=== PATIENT | female | born 1945 | race Caucasian/White ===

== ENCOUNTER → 2018-02-04 11:24 | Outpatient (CLI) | payer MEDICARE, SELFPAY | PROVIDERS: Family Provider Physician Assistant; PCP Physician Assistant; Visit Provider Physician Assistant | DX: J02.9 Acute pharyngitis, unspecified (principal) | CPT/HCPCS: 87070 ==

== ENCOUNTER → 2018-04-19 11:26 | Outpatient (CLI) | payer MEDICARE, SELFPAY ==
[2018-04-19 11:49] LABS: Bacteria Urine None Seen; RBC Urine None Seen (0-5/HPF); WBC Urine None Seen (0-5/HPF)
[2018-04-19 12:04] LABS: Add Manual Diff / Slide Review NO; Basophils Percent Auto 1.3 % (0-2); Eosinophils Percent Auto 9.6 % (2-4); Hematocrit 36.9 % (36-46); Hemoglobin 12.9 g/dL (12.0-16.0); Lymphocytes Percent Auto 31.2 % (25-40); Mean Corpuscular HGB Conc 34.9 % (30-36); Mean Corpuscular Hemoglobin 30.4 PG (26-34); Mean Corpuscular Volume 87.2 fL (80-100); Monocytes Percent Auto 7.1 % (3-14); Neutrophils Absolute Auto 2200 /uL (3000-5900); Neutrophils Percent Auto 50.8 % (50-75); Platelet Count 183 X10^3/uL (150-400); Red Blood Cell Count 4.24 X10^6/uL (4.0-5.2); Red Cell Distribution Width 12.6 % (11.6-14.8); White Blood Cell Count 4.3 X10^3/uL (4.5-11.0)
[2018-04-19 12:17] LABS: Appearance Urine UA CLEAR; Bilirubin Urine UA NEGATIVE (NEGATIVE); Color Urine UA YELLOW; Glucose Urine UA NEGATIVE (Normal); Ketones Urine UA NEGATIVE (NEGATIVE); Leukocyte Esterase Urine UA TRACE (NEGATIVE); Nitrite Urine UA Negative (Negative); Occult Blood Urine UA NEGATIVE (Negative); Protein Urine UA NEGATIVE (Negative); Specific Gravity Urine UA 1.025 (1.000-1.035); Urobilinogen Urine UA 0.2 E.U./dL (0.2)
[2018-04-19 12:23] LABS: HEMOLYSIS < 15 (0-50); Iron 162 ug/dL (37-170)
[2018-04-19 12:25] LABS: Alanine Aminotransferase 24 IU/L (9-52); Albumin 4.4 g/dL (3.5-5.0); Albumin Globulin Ratio 1.5 (1.0-2.8); Alkaline Phosphatase 44 U/L (38-126); Aspartate Aminotransferase 21 IU/L (14-36); BUN Creatinine Ratio 26.7 (6-22); Bilirubin Total 1.2 mg/dL (0.2-1.3); Blood Urea Nitrogen 16 mg/dL (7-17); Calcium 9.5 mg/dL (8.4-10.2); Carbon Dioxide 29 mmol/L (22-32); Chloride 105 mmol/L (98-107); Cholesterol 215 mg/dL (140-199); Estimated Glomerular Filt Rate > 60.0 mL/min (>60); Globulin 2.9 g/dL (1.7-4.1); Glucose 102 mg/dL (80-110); HDL Cholesterol 78 mg/dL (40-60); HEMOLYSIS < 15 (0-50); LDL Cholesterol Calculated 117 mg/dL (<100); Potassium 4.6 mmol/L (3.4-5.1); Sodium 144 mmol/L (137-145); Total Protein 7.3 g/dL (6.3-8.2); Triglycerides 102 mg/dL (35-150)
[2018-04-19 12:34] LABS: Percent Iron Saturation 52 % (15-50); Total Iron Binding Capacity 314 ug/dL (265-497); Transferrin 263 mg/dL (206-381)
[2018-04-19 12:37] LABS: Culture Indicated Urine Cult Not Indicated; Urine Comments Microscopic Normal
[2018-04-19 12:51] LABS: Thyroid Stimulating Hormone 0.68 uIU/mL (0.47-4.68)
[2018-04-19 12:54] LABS: Ferritin 85.5 ng/mL (11.1-264)
[2018-04-19 13:08] LABS: Vitamin B12 361 pg/mL (239-931)
== END ==
PROVIDERS: PCP Physician Assistant; Visit Provider Physician Assistant
DX: K62.5 Hemorrhage of anus and rectum (principal); R10.9 Unspecified abdominal pain; R53.83 Other fatigue; Z13.220 Encounter for screening for lipoid disorders; Z13.6 Encounter for screening for cardiovascular disorders; R20.0 Anesthesia of skin
CPT/HCPCS: 36415; 80053; 80061; 81001; 82607; 82728; 83540; 83550; 84443; 85025

== ENCOUNTER → 2018-05-31 13:40 | Outpatient (CLI) | payer MEDICARE, SELFPAY ==
--- NOTE | 2018-05-31 13:41 | DI.MG.S_ITS ---
BILATERAL DIGITAL SCREENING MAMMOGRAM 3D/2D WITH CAD: 05/31/2018 CLINICAL: Routine screening. Family history of breast cancer. Comparison is made to exams dated: 02/24/2015 mammogram, 02/24/2015 mammogram, and 09/24/2012 mammogram - [facility]. The tissue of both breasts is heterogeneously dense. This may lower the sensitivity of mammography. Current study was also evaluated with a Computer Aided Detection (CAD) system. No significant masses, calcifications, or other findings are seen in either breast. There has been no significant interval change. IMPRESSION: NEGATIVE There is no mammographic evidence of malignancy. A 1 year screening mammogram is recommended. This exam was interpreted at Station ID: [id number]. NOTE: For mammograms, a report in lay terms will be sent to the patient. Approximately 15% of breast malignancies will not be visualized mammographically. In the management of a palpable breast mass, a negative mammogram must not discourage biopsy of a clinically suspicious lesion. Electronically Signed By: Kaylan evans/vladimir:05/31/2018 17:26:10 letter sent: Normal Exam ACR BI-RADS Category 1: Negative 3341F
== END ==
PROVIDERS: Family Provider Physician Assistant; PCP Physician Assistant; Visit Provider Physician Assistant
DX: Z12.31 Encounter for screening mammogram for malignant neoplasm of breast (principal); Z80.3 Family history of malignant neoplasm of breast
CPT/HCPCS: 77063; 77067

== ENCOUNTER 2018-06-11 09:44 | Day surgery (SDC) | payer MEDICARE, SELFPAY ==
[2018-06-11] VITALS (7 sets, daily range): BP systolic 125–147; BP diastolic 71–90; PULSE 73–113; RESP 10–16; TEMP 36.6–36.8; O2SAT 97–99; BMI 22.4
--- NOTE | 2018-06-11 | PATH_ITS ---
[facility] Accession Number: [id number] . 01 Material submitted: . PART A: GE JUNCTION BIOPSY PART B: RECTAL POLYP . 02 Diagnosis: A. Gastroesophageal Junction, Biopsy: Squamous mucosa with increased intraepithelial eosinophils (up to 45 per 40x high power field), see comment. No columnar mucosa present for evaluation. Negative for dysplasia or malignancy. . B. Rectal Polyp: Tubulovillous adenoma. Negative for high-grade dysplasia or malignancy. BFI06/14/2018 . 02 Comment: A. In the proper clinical setting, the histopathologic appearance in the distal esophagus would support a clinical impression of eosinophilic esophagitis. The differential diagnosis includes drug reaction, gastroesophageal reflux, and food allergies. . . . . 02 Electronically signed: . Raul Pop MD, PhD, Pathologist NPI- [id number] . 01 Gross description: . Part A: GE JUNCTION BIOPSY: Received in formalin are multiple fragment(s) of olson, soft tissue measuring 0.5 x 0.3 x 0.1 cm in aggregate submitted entirely in 1 cassette(s) Part B: RECTAL POLYP: Received in formalin are 2 fragment(s) of olson, soft tissue measuring 1.2 x 0.6 x 1.4 cm to 0.7 x 0.7 x 0.6 cm which are inked, bisected and submitted entirely in 2 cassette(s) /CKI /CKI . 02 Pathologist provided ICD-10: K20.0, D12.8 . 02 CPT . 781563, 317096 Performed at: 01 [facility] [address] [place] [address] [address] [facility], [place], [place] [id number] MD David Luque MD Phone: [phone] Performed at: 02 [facility] [place] [address] [place] [id number] MD Vale Vides MD Phone: [phone]
[2018-06-11] MEDS: SODIUM CHLORIDE 0.9% 1,000 ML 200 ML IV (10:08)
--- NOTE | 2018-06-11 11:45 | P.HP_ITS ---
History of Present Illness Date Patient Seen: 06/11/18 Time Patient Seen: 11:43 Chief complaint: [id number] Narrative: Patient is a woman here for an EGD and a colonoscopy. She has been having rectal bleeding. Not certain if it is black or red the supper lower scopes ordered. She has been having some upper abdominal pain. Patient History Medical History Insomnia (Chronic) Coccidioidomycosis (Resolved ~09/2003) Surgical History H/O arthroscopic knee surgery (Resolved) History of (Resolved) S/P SABRA-BSO (total abdominal hysterectomy and bilateral salpingo-oophorectomy) ( Resolved) Family & Social History Family History: Reviewed 06/11/18 by Mac Meneses MD Social History: household members spouse Tobacco & Substance use: Smoking Status Never smoker alcohol intake current Meds Home Medications Medication Instructions Recorded Confirmed Type cholecalciferol (vitamin D3) 2,000 iu PO Q DAY #0 05/24/11 06/11/18 History [Vitamin D3] multivitamin capsule 1 cap PO DAILY 02/04/18 06/11/18 History Allergies Allergy/AdvReac Type Severity Reaction Status Date / Time benzoyl peroxide Allergy Severe FACIAL Verified 06/10/18 13:38 SWELLING Sulfa (Sulfonamide Allergy Severe SWELLING, Verified 06/10/18 13:38 Antibiotics) HIVES Review of Systems Review of Systems All systems reviewed & are unremarkable except as noted in HPI and below Exam Vital Signs (past 8 hours): - 06/11/18 09:53 Temperature 97.9 F Pulse Rate 113 H Respiratory Rate 16 Blood Pressure 146/90 H Pulse Oximetry 98 Oxygen Delivery Method Room Air Narrative Exam Narrative: Co Operative no apparent distress. Her lungs are clear to auscultation no rales or rhonchi. Heart regular rate and rhythm no murmur gallop abdomen is soft nontender without mass. She is alert and oriented x3. Assessment & Plan Plan: Assessment/Plan Narrative: Will proceed EGD and colonoscopy. I have discussed the procedure and the rationale with the patient including risks of bleeding, perforation which would necessitate a major operation, failure to find remove all lesions and the potential to tattoo. They appeared to understand and wished to proceed.
--- NOTE | 2018-06-11 11:45 | PM.PREOP ---
Pre-operative Note Interval Note Pre-op Check: Yes History & Physical exam performed today by Physician Changes: No ASA Class (for procedural sedation): I
[2018-06-11] MEDS: LIDOCAINE 4% SOLN 50 ML 20 ML TOP (11:49)
[2018-06-11] MEDS: TETRACAINE/BENZOCAINE/BUTAMBEN (CETACAINE) BOTTLE 1 SPRAY TOP (11:54)
[2018-06-11] MEDS: fentaNYL 250 MCG/5 ML INJ IV (12:18)
[2018-06-11] MEDS: MIDAZOLAM 5 MG/5 ML VIAL IV (12:18)
--- NOTE | 2018-06-11 12:39 | P.OP.ENDO_ITS ---
Operative Date/Time/Diagnoses Date of procedure: 06/11/18 Time of procedure: 12:30 Pre-op diagnosis: Rectal bleeding Post-op diagnosis: same (Possible Ley's esophagus. Large rectal polyp. Sigmoid diverticulosis.) Procedure & Clinicians Study performed: EGD with cold biopsy colonoscopy with snare polypectomy Same procedure as scheduled: Yes Indications: Determine cause of bleeding Surgeon: Mac Meneses Procedure Notes SCOAP/Timeout: Performed Procedure in detail: The patient had topical anesthetic applied to oropharynx. She was placed in left lateral decubitus position and underwent IV sedation directed by the surgeon consisting of fentanyl and Versed. A bite block was inserted and the scope was advanced through it into the esophagus. The esophagus was unremarkable. GE junction was noted at 40 cm. There some mild inflammation suggesting possible Ley's esophagus.. The stomach insufflated well. There were no lesions seen in the body, antrum or at the incisura. The pyloric channel was narrowed but patent. The duodenum was unremarkable to the 3rd part. The scope was brought back into the stomach and retroflexed. The proximal stomach was normal in appearance. There was no evidence of a hiatal hernia from above or below.. The scope was straightened and brought out through the esophagus again. Biopsies were taken randomly at the GE junction. No other lesions were seen. The scope was removed and the patient tolerated the procedure well. The patient was repositioned and colonoscopy performed. The patient was left in the left lateral decubitus position and underwent additional IV sedation directed by the surgeon consisting of fentanyl and Versed. Digital exam was unremarkable except for external hemorrhoids. The scope was inserted and advanced through the rectum into the sigmoid, descending, transverse, and ascending colon. The patient was noted to have sigmoid diverticulosis. There was no evidence of stricture however. A stiffener was applied along with the per pressure to the abdomen and we were able to reach the cecum. The cecum was reached identified by the ileocecal valve and the appendiceal opening. The ileocecal valve was briefly cannulated. The terminal ileum was normal in appearance. The scope was gradually brought out. No Polyps were found until I reached the rectum. There was a large polyp just inside the anal verge. I retroflexed the scope 1st and the anal verge was normal in appearance. The polyp was then snared in 2 pieces and removed. It appeared to be completely removed. The edges of the polypectomy site were cauterized to make sure. The scope was removed and the patient tolerated the procedure well Scope withdrawal time: 7-1/2 minutes Sedation minutes: 40 Findings: Ley's esophagus (Possible. Biopsies taken.), diverticulosis ( Sigmoid) and polyp (Large rectal polyp just inside anal verge) Specimen(s): other (Polyp/GE junction biopsies) Complications: none Recommendations: Other recommendation (Flex sig in 6 months to confirm no regrowth of the rectal polyp) Follow up: as needed Disposition: PACU
--- NOTE | 2018-06-11 12:57 | SUR.PHASEI ---
stable pacu, to ops.
== END 2018-06-11 13:40 | disposition home or self-care (01) ==
PROVIDERS: PCP Physician Assistant; Visit Provider Specialist
PROC: 0DJ08ZZ Inspection of Upper Intestinal Tract, Via Natural or Artificial Opening Endoscopic (ICD-10-PCS; CPT 43235; principal; 2018-06-11 10:45)
PROC: 0DJD8ZZ Inspection of Lower Intestinal Tract, Via Natural or Artificial Opening Endoscopic (ICD-10-PCS; CPT 45378; 2018-06-11 10:45)
DX: K62.5 Hemorrhage of anus and rectum (principal); K57.30 Diverticulosis of large intestine without perforation or abscess without bleeding; K22.70 Barrett's esophagus without dysplasia; K20.0 Eosinophilic esophagitis; D12.8 Benign neoplasm of rectum
CPT/HCPCS: 45385; 43239; 88305; 99152; 99153; J2250; J3010

== ENCOUNTER 2018-12-03 08:21 | Day surgery (SDC) | payer MEDICARE, SELFPAY ==
[2018-12-03 08:44] VITALS: BP 160/83; PULSE 79; RESP 16; TEMP 36.7; O2SAT 98; BMI 24.0
[2018-12-03] MEDS: SODIUM CHLORIDE 0.9% 1,000 ML 150 ML IV (08:53)
--- NOTE | 2018-12-03 08:58 | SUR.OPER ---
Supine on padded OR bed, head on pillow, safety belt at thigh, left arm padded and tucked at side. Right arm secured on padded arm oard <90 degrees abduction. Legs uncrossed. Padded footboard in place. Tape over blanket to secure lower legs.
--- NOTE | 2018-12-03 09:21 | PM.HP.1 ---
History of Present Illness Date Patient Seen: 12/03/18 Time Patient Seen: 09:11 Chief complaint: [id number] Narrative: The patient is wound a large polyp removed from her rectum 6 months ago. She is here to ensure that nothing has grown back and it was completely removed. the polyp was benign. Patient History Medical History (Updated 12/03/18 @ 09:22 by Mac Meneses MD) Benign colonic polyp (Resolved) Insomnia (Chronic) Coccidioidomycosis (Resolved ~09/2003) Surgical History H/O arthroscopic knee surgery (Resolved) History of (Resolved) S/P SABRA-BSO (total abdominal hysterectomy and bilateral salpingo-oophorectomy) (Resolved) Family History Mother Hypertension Gallstones Father Hypertension Heart disease Grandmother Diabetes mellitus Grandmother Stroke Social History household members: spouse Smoking Status: Never smoker second hand exposure: No alcohol intake: current (a couple of glasses of wine occasionally) substance use type: does not use Family & Social History Family History Mother Hypertension Gallstones Father Hypertension Heart disease Grandmother Diabetes mellitus Grandmother Stroke Social History: household members spouse Tobacco & Substance use: Smoking Status Never smoker alcohol intake current Meds Home Medications Medication Instructions Recorded Confirmed Type cholecalciferol (vitamin D3) 2,000 iu PO Q DAY #0 05/24/11 06/11/18 History [Vitamin D3] multivitamin capsule 1 cap PO DAILY 02/04/18 06/11/18 History Allergies Allergy/AdvReac Type Severity Reaction Status Date / Time benzoyl peroxide Allergy Severe FACIAL Verified 12/03/18 08:37 SWELLING Sulfa (Sulfonamide Allergy Severe SWELLING, Verified 12/03/18 08:37 Antibiotics) HIVES Review of Systems Review of Systems No cardiopulmonary GI or symptoms Exam Vital Signs (past 8 hours): - 12/03/18 08:44 Temperature 98.1 F Pulse Rate 79 Respiratory Rate 16 Blood Pressure 160/83 H Pulse Oximetry 98 Oxygen Delivery Method Room Air Narrative Exam Narrative: Lungs are clear. Heart regular rate and rhythm without murmur gallop. Abdomen is soft nontender without mass. Patient is alert. Assessment & Plan Assessment & Plan narrative: The patient for a sigmoidoscopy. I have discussed the procedure with her. Risks of bleeding, perforation which would necessitate major operation, . All questions were answered. She wished to proceed.
--- NOTE | 2018-12-03 09:25 | PM.PREOP ---
Pre-operative Note Interval Note History & Physical reviewed/Exam performed by Physician: Yes Changes to H&P: No ASA Class (for procedural sedation): I
--- NOTE | 2018-12-03 09:29 | PM.PREOP ---
Pre-operative Note Interval Note History & Physical reviewed/Exam performed by Physician: Yes Changes to H&P: No ASA Class (for procedural sedation): I
--- NOTE | 2018-12-03 09:30 | PM.OP.ENDO ---
Operative Date/Time/Diagnoses Date of procedure: 12/03/18 Time of procedure: 09:30 Pre-op diagnosis: History of rectal polyp near anal verge Post-op diagnosis: same (No residual seen) Procedure & Clinicians Study performed: Flexible sigmoidoscopy to 20 cm Same procedure as scheduled: Yes Indications: Confirm complete removal and no regrowth Surgeon: Mac Meneses Procedure Notes SCOAP/Timeout: Performed Procedure in detail: Patient was placed in left lateral decubitus position. Digital exam was unremarkable. Scope was inserted and the anus and rectum carefully examined to 20 cm. The scope was slowly brought back. It was retroflexed in the rectum. There was no evidence of any residual or regrowth of polyp. Scope was removed and the patient tolerated the procedure well Scope withdrawal time: Not applicable Sedation minutes: 0 Findings: other findings (No regrowth of the polyp) Specimen(s): none sent Complications: none Recommendations: Other recommendation (Colonoscopy in 4.5 years due to the history of polyps) Follow up: as needed Disposition: same day surgery
[2018-12-03 09:37] VITALS: BP 147/78; PULSE 76; RESP 15; TEMP 36.6; O2SAT 98
== END 2018-12-03 09:46 | disposition home or self-care (01) ==
PROVIDERS: PCP Physician Assistant; Visit Provider Specialist
PROC: 0DJD8ZZ Inspection of Lower Intestinal Tract, Via Natural or Artificial Opening Endoscopic (ICD-10-PCS; CPT 45378; principal; 2018-12-03 09:45)
DX: Z86.010 Personal history of colon polyps (principal)
CPT/HCPCS: G0104

== ENCOUNTER → 2018-12-14 16:00 | Outpatient (CLI) | payer MEDICARE, SELFPAY | PROVIDERS: PCP Physician Assistant; Visit Provider Physician Assistant | DX: N30.01 Acute cystitis with hematuria (principal) | CPT/HCPCS: 87086 ==

== ENCOUNTER → 2021-03-23 16:16 | Outpatient (CLI) | payer MEDICARE, SELFPAY ==
--- NOTE | 2021-03-23 16:19 | DI.MG.S_ITS ---
BILATERAL DIGITAL SCREENING MAMMOGRAM 3D/2D WITH CAD: 03/23/2021 CLINICAL: Routine screening. Family history of breast cancer. Comparison is made to exams dated: 05/31/2018 mammogram, 02/24/2015 mammogram, and 02/24/2015 mammogram - [facility]. The tissue of both breasts is heterogeneously dense. This may lower the sensitivity of mammography. Current study was also evaluated with a Computer Aided Detection (CAD) system. There are benign calcifications in the left breast. No significant masses, calcifications, or other findings are seen in either breast. There has been no significant interval change. IMPRESSION: BENIGN There is no mammographic evidence of malignancy. A 1 year screening mammogram is recommended. This exam was interpreted at Station ID: [id number]. NOTE: For mammograms, a report in lay terms will be sent to the patient. Approximately 15% of breast malignancies will not be visualized mammographically. In the management of a palpable breast mass, a negative mammogram must not discourage biopsy of a clinically suspicious lesion. Electronically Signed By: Megan patel/vladimir:03/23/2021 17:57:27 letter sent: Normal Exam ACR BI-RADS Category 2: Benign Finding(s) 3342F
== END ==
PROVIDERS: PCP Student in an Organized Health Care Education/Training Program; Referring Provider Student in an Organized Health Care Education/Training Program; Visit Provider Obstetrics & Gynecology
DX: Z12.31 Encounter for screening mammogram for malignant neoplasm of breast (principal); Z80.3 Family history of malignant neoplasm of breast
CPT/HCPCS: 77063; 77067

== ENCOUNTER → 2021-12-21 11:20 | Outpatient (CLI) | payer MEDICARE, SELFPAY ==
[2021-12-21 11:54] LABS: COVID19 -Nasal RAPID Negative (Negative)
== END ==
PROVIDERS: PCP Student in an Organized Health Care Education/Training Program; Visit Provider Obstetrics & Gynecology
DX: Z20.822 Contact with and (suspected) exposure to COVID-19 (principal)
CPT/HCPCS: 87635

== ENCOUNTER 2021-12-22 08:10 | Day surgery (SDC) | payer MEDICARE, SELFPAY ==
[2021-12-15 07:47] VITALS: BMI 24.3
[2021-12-22] VITALS (12 sets, daily range): BP systolic 111–149; BP diastolic 49–83; PULSE 77–97; RESP 10–18; TEMP 36–37.3; O2SAT 95–98; BMI 24.3
--- NOTE | 2021-12-22 09:26 | PM.PREOP ---
Pre-operative Note COVID-19 COVID-19 status: Negative Result date/Date tested (Pos, Neg/Pending): 12/21/21 Criteria for continued procedure: Non-surgical alternatives not available or appropriate per current SOC Interval Note History & Physical reviewed/Exam performed by Physician: Yes Changes to H&P: No H&P completed within 30 days and has changed as indicated here:: 12/15/21
[2021-12-22] MEDS: CEFAZOLIN 2 GM/20 ML SYRINGE IV (10:30)
[2021-12-22] MEDS: BUPIVACAINE 0.25% (PF) 30 ML, EPINEPHrine 0.15 MG INJ (10:45)
[2021-12-22] MEDS: ACETAMINOPHEN IV 1,000 MG/100 ML VIAL 400 MG IV (11:07)
--- NOTE | 2021-12-22 11:11 | SUR.OPER ---
Lithotomy on padded OR bed, head on pillow, arms secured on padded arm boards at <90 degrees abduction. Legs secured in padded yellow fins stirrups.
[2021-12-22] MEDS: LACTATED RINGERS 1,000 ML 100 ML IV ×3 (11:25→21:17)
--- NOTE | 2021-12-22 11:49 | P.OP_ITS ---
Operative Date/Time/Diagnoses Date of procedure: 12/22/21 Time of procedure: 11:49 Pre-op diagnosis: Third-degree rectocele Vaginal vault prolapse Post-op diagnosis: same Procedure & Clinicians Procedure: Procedures Operation Date: 12/22/21 09:45 Actual Procedure Side Surgeon p Posterior Repair, sacrospinous ligament fixation Teodora Mcintyre MD Indications: Third-degree rectocele that is symptomatic Vaginal vault prolapse Surgeon: Teodora Mcintyre Social Services Director: Tami Hough Anesthesia Type: General and Local Operative Notes Findings: Third-degree rectocele Vaginal vault prolapse Closure Type: primary Specimen(s): none Applied: catheter (Oneal to continuous drainage) and other (Vaginal packing in place) Estimated blood loss (mL): 10 Blood products transfused: none Procedure in detail: The patient was taken to the operating room where she was placed in the dorsal supine position. After adequate general endotracheal anesthesia was achieved, she was placed in the dorsal lithotomy position, and prepped and draped in the usual sterile fashion. A time-out was performed. Allis clamps were placed at the mucocutaneous junction at the introitus. 6 mL of quarter percent Marcaine with epinephrine were injected. An incision was made with a #10 blade between the 2 Allis clamps, and a triangular piece of skin and underlying subcutaneous tissue was removed. Allis clamps were placed in the midline of the rectocele. 10 mL of quarter percent Marcaine with epinephrine were injected submucosally. The mucosa was undermined using the Metzenbaum scissors and the mucosa incised in the midline, moving the wide Allis clamps to the mucosal edges. The underlying fascia was dissected off of the mucosa using an open moistened Ray-Nan and a #10 blade. The space around the right sacral spinous ligament was bluntly dissected to clear tissue vessels. The ligament was identified. Using the Capio needle with 2 0 PDS, a stitch was placed into the sacral spinous ligament 2 cm from the ischial spine. This was then brought through the apex of the vagina with care not to go all the way through the mucosa. This was tagged with a hemostat. The fascia was reapproximated using 0 Vicryl with a series of horizontal mattress sutures. The excess vaginal mucosa was excised. The mucosa was closed using a series of simple interrupted sutures with 2-0 Vicryl including the underlying fascia to close the space. The first 3 stitches were placed and then the sacral spinous ligament stitch was tied down. The remainder of the mucosa was closed with simple interrupted sutures including the underlying fascia. 0 Vicryl was used to reapproximate the levator muscle. The subcutaneous layer was closed with 2-0 Vicryl. The skin was closed with 3-0 chromic in a subcuticular fashion. Hemostasis was achieved. A Betadine moistened vaginal pack was placed into the vagina. A rectal exam was done and there were no sutures palpable in the rectum. The urine was clear. Sponge, lap, and instrument counts were correct x-2. The patient tolerated the procedure well, was taken to PACU in stable condition.m Complications: none Post-operative Condition: stable Disposition: PACU Plan for aftercare: To Acute Care after recovery
[2021-12-22] MEDS: DOCUSATE 100 MG CAPSULE 200 MG PO (20:41)
[2021-12-22] MEDS: ACETAMINOPHEN 325 MG TABLET 650 MG PO (20:41)
[2021-12-23] MEDS: OXYCODONE IR 5 MG TABLET PO ×2 (02:54→10:18)
--- NOTE | 2021-12-23 05:24 | PC.NURSE ---
Oneal catheter and vaginal packing removed without trauma or discomfort. vag packin g with moderate staining but not shayan red blood noted. Zak-care performed and new zak-pad placed. Pt placed in position of comfort. Total of 1350 clear pale yellow urine emptied from catheter drainage bag.
--- NOTE | 2021-12-23 05:25 | PC.NURSE ---
Oneal and vaginal packing removed. 1350mL out from catheter, scant drainage on vaginal pad. Patient tolerated well.
[2021-12-23 05:45] VITALS: BP 130/72; PULSE 74; RESP 18; TEMP 36.9; O2SAT 95
[2021-12-23] MEDS: ACETAMINOPHEN 325 MG TABLET 650 MG PO (06:06)
[2021-12-23] MEDS: DOCUSATE 100 MG CAPSULE 200 MG PO (08:21)
[2021-12-23 09:00] VITALS: BP 126/77; PULSE 70; RESP 16; TEMP 36.9; O2SAT 97
--- NOTE | 2021-12-23 09:16 | CM.DANOTE ---
DCP: PCP: Chery Horton MD Payor: Medicare Patient is a 76 y/o F admitted for Posterior repair/SSLP on 12/22/21. DCP met with pt at bedside. Pt sitting up in chair watching TV. Spouse also present. DCP introduced herself and explained role. Pt states she is in more sore today than yesterday. Pt states MD has not yet come by but hoping for discharge today, as she is ready to go home. Pt lives in [place] with her spouse. Pt is independent at baseline still drives POV. Pt denies any need for HH and states she has a good spouse who will take care of her when they get home. DCP updated whiteboard with contact info and instructed to call with any other concerns should they arise. P: Pt d/c home when deemed medically stable by MD. Pt to leave hospital in spouse POV. Allyson Sanches RN/GEE Discharge Planning/Care Management CM Discharge Assessment Start: 12/23/21 09:15 Freq: Status: Active Protocol: Document 12/23/21 09:15 HEATHER (Rec: 12/23/21 09:16 AJ [id number]) Discharge Planning Assessment Assigned Lead Pressman [employer] Allyson Sanches RN/GEE Advance Directives? No History Provided By Patient,Medical Record Prior Living Arrangements House Household Members spouse Type of transporation used prior to Drives own vehicle admit Independent with ADL's Yes Is patient alert and oriented? Yes Caregiver for Another No Discharge Plan Home Transportation Arrangement Spouse POV Referrals Initiated None needed Whiteboard Updated in Patient Room with Yes name and ext. # of Lead Pressman [employer] Comment Instructed to call with any questions Review Status In Process Please Provide Date Initial DC 12/23/21 Assessment Was Performed Next Review Type Continued Stay Review Pre-Anesthesia Assessment Start: 12/15/21 07:47 Freq: Status: Complete Protocol: Document 12/15/21 07:47 CAB (Rec: 12/15/21 07:55 CAB [id number]) Pre-Anesthesia Assessment Patient Information Reviewed Via Chart Review Comment Covid screen @ 12/21/21 Primary Care Provider Felicitas Aguirre Seen Specialist in Last 12 Months Yes Specialist Seen Grommet Man Primary Language Kazakh Salesperson Parts Required No Height 167.64 cm Weight 68.492 kg Body Mass Index (BMI) 24.3 Hx Anesthesia Reactions No Hx Family Anesthesia Reaction No Hx Malignant Hyperthermia No Hx Blood Transfusion Reaction No Anesthesia Review Requested No Garden Consultant No alcohol intake current Alcohol Intake Frequency Other: Ocassional Smoking Status Never smoker Patient is completely paralyzed or No completely immobile Mental Status Oriented to own ability Hx Sleep Apnea No CPAP/BIPAP use not prescribed Currently Taking a Beta Orlin No Anti-Coagulant Therapy No Cardiac Testing No Hx Pacemaker/ICD No Pacemaker Rep Required? No Urinary Catheter Present No Hx Urinary Self Catheterization No Diabetes No Patient No Lactating No Hx Drug Resistant Organism No Presence of External or Internal Medical No Devices Marital Status Lives With spouse Patient Discharge Plan Description Return Home Advance Directives? No Power of Bread Wrapping Machine Feeder No
[2021-12-23] MEDS: IBUPROFEN 600 MG TABLET PO (10:18)
--- NOTE | 2021-12-23 15:15 | PM.DS.1 ---
History of Present Illness History of Present Illness Date Patient Seen: 12/23/21 Time Patient Seen: 12:05 Chief complaint: Posterior Repair/SSLP *OPB* Narrative: Patient is a 76-year-old postop day # 1 status post a posterior repair and a sacral spinous ligament fixation. Her catheter was removed and vaginal packing removed at 6:00 a.m. this morning. She was able to void without difficulty. She is having minimal vaginal bleeding. She has no nausea or vomiting. She is tolerating a diet. Pain is well controlled. Discharge Providers Provider Date of admission: 12/22/21 Discharge Date: 12/23/21 Primary care physician: Chery Horton MD Discharge provider: Teodora Mcintyre MD Summary Hospital Course Discharge Diagnosis: Third-degree rectocele Vaginal vault prolapse Hospital Course: Patient is a 76-year-old who presented on December 22, 2021 for a scheduled posterior repair and sacral spinous ligament fixation. She underwent these procedures without complication. Her postoperative course unremarkable. She was able to void without the catheter on postop day # 1. She is having minimal vaginal bleeding. No nausea or vomiting. Pain well controlled. She is ambulating without assistance. She is tolerating a diet. She had some tenderness of her tonsils. Anesthesia evaluated her and prescribed some topical lidocaine. She is discharged home on postop day # 1 to follow-up in 2 weeks. Status at Discharge Cognitive/behavioral status at discharge: oriented Functional status at discharge: independent ambulation Overall status at discharge: patient is progressing back to baseline Time Spent with Patient Time spent: Less than 30 minutes Exam Vital Signs (past 8 hours): - 12/23/21 09:00 Temperature 98.5 F Pulse Rate 70 Respiratory Rate 16 Blood Pressure 126/77 Pulse Oximetry 97 Oxygen Delivery Method Room Air Oxygen Flow Rate 0 Narrative Exam Narrative: Generally: Patient walking in room, no acute distress Lungs: Clear to auscultation bilaterally Cardiovascular: Regular rate and rhythm Abdomen: Soft and flat Perineum: Dry Extremities: No edema, negative [facility] Medical History Benign colonic polyp Coccidioidomycosis (~09/2003) Hx of flexible sigmoidoscopy (12/03/18) Insomnia Osteoarthritis Surgical History H/O arthroscopic knee surgery History of S/P SABRA-BSO (total abdominal hysterectomy and bilateral salpingo-oophorectomy) Family History Mother Hypertension Gallstones Father Hypertension Heart disease Grandmother Diabetes mellitus Grandmother Stroke Social History household members: spouse Smoking Status: Never smoker second hand exposure: No alcohol intake: former substance use type: does not use Discharge Assessment & Plan Assessment and Plan Assessment: Postop day # 1 status post posterior repair and sacral spinous ligament fixation, doing very well Tonsils/uvula discomfort Plan of Treatment: Discharge to home Follow-up in 2 weeks Viscous lidocaine Discharge Plan Discharge Plan Patient Disposition: Home Provider Discharge Comment: Call with fever, chills, or bleeding vaginally more than spotting to light Ibuprofen 600 mg every 6 hours as needed. Please take with food or milk. Tylenol 650 mg every 6 hours as needed Stool softeners for the first 6 week Discharge orders & Medications Discharge Orders: Discharge (Order); Ordered 12/23/21 Ordered By: Teodora Mcintyre Prescriptions: New oxycodone 5 mg tablet 5 mg PO Q4H PRN (Reason: pain) Qty: 20 0RF Continued multivitamin capsule 1 cap PO DAILY 0RF cholecalciferol (vitamin D3) [Vitamin D3] 2,000 UNIT capsule 2,000 iu PO Q DAY Qty: 0 0RF Discontinued CMP Estradiol Vaginal Pearls 10mcg See Rx Instructions .ROUTE .COMPLEX Qty: 8 6RF Rx Instructions: insert one tacos vaginally at bedtime 2x weekly. Makers Follow up/Referrals: Teodora Mcintyre MD [Physician] - 2 Weeks Diet/Activity/Treatments Diet: Regular Activity: No heavy lifting. Nothing more than a gal of milk for 6 weeks Nothing in the vagina for 6 weeks, including estradiol Skin/Wound/Dressing Care Report to your healthcare provider any signs of infection, such as:: chills, fever, increased pain and unusual drainage Visit Report/Discharge Packet Instructions: DI for Cystocele and Rectocele Repair, DI for Prescription Opioid Use Stand Alone Forms: Surgery Discharge Discharge Data Primary Care Provider: Chery Horton Attending Provider: Teodora Mcintyre Quality VTE Deep Vein Thrombosis/Pulmonary Embolism Present on Admission: No
--- NOTE | 2021-12-30 20:11 | PM.PN.1 ---
Subjective Subjective Date Patient Seen: 12/23/21 Interval history: I was asked by Dr Mcintyre to see Mrs Tolentino prior to her discharge for her complaint of sore throat after her surgery on December 22. I did so. Dee was worried about her tonsils, but upon examination it was really her uvula which was swollen and reddened at the distal third. The rest of her oropharynx looked normal. I suspect the swollen uvula was a consequence of malplacement of the laryngeal mask airway used during her surgery. This is a rare but well known complication of airway instrumentation which usually resolves without sequelae. I reassured Dee and gave her some viscous lidocaine mouthwashes to take home with her to help relieve her symptoms. I called Mrs Tolentino at home on December 30. Her sore throat has completely resolved, and did so a few days after discharge, as anticipated. She has no post-op pain. She has resumed all normal activities except for driving and other load bearing instructions as per Dr Mcintyre. She is very happy with her procedure and expresses satisfaction with her care. Exam Vital Signs (past 8 hours): Oxygen Delivery Method Room Air Oxygen Flow Rate 0 PFSH Medical History Benign colonic polyp Coccidioidomycosis (~09/2003) Hx of flexible sigmoidoscopy (12/03/18) Insomnia Osteoarthritis Surgical History H/O arthroscopic knee surgery History of S/P SABRA-BSO (total abdominal hysterectomy and bilateral salpingo-oophorectomy) Family History Mother Hypertension Gallstones Father Hypertension Heart disease Grandmother Diabetes mellitus Grandmother Stroke Social History household members: spouse Smoking Status: Never smoker second hand exposure: No alcohol intake: former substance use type: does not use Assessment & Plan Time Spent With Patient Critical Care time: I spent a total of [] minutes of critical care time on this patient's care today; this time is exclusive of procedural time. Quality VTE Deep Vein Thrombosis/Pulmonary Embolism Present on Admission: No
== END 2021-12-23 13:22 | disposition home or self-care (01) ==
LOC: OR 08:12 → AC 08:12
PROVIDERS: PCP Family Medicine; Referring Provider Obstetrics & Gynecology; Visit Provider Obstetrics & Gynecology
PROC: (CPT 57282; principal; 2021-12-22 09:45)
DX: N81.6 Rectocele (principal)
CPT/HCPCS: 57282; 57250; J0131; J0171; J0690; J3010

== ENCOUNTER → 2022-03-14 11:07 | Outpatient (CLI) | payer MEDICARE, SELFPAY ==
[2022-01-05 15:32] VITALS: BMI 24.3
--- NOTE | 2022-03-14 | DI.RAD.S_ITS ---
PROCEDURE: XR DEXA AXIAL SKELETON INDICATIONS: Asymptomatic menopausal state COMPARISON: [facility], CR, DEXA AXIAL SKELETON, 09/24/2012, 12:39. FINDINGS: This blank DEXA report has been sent in error by the PACS system. The correct and complete report will be forthcoming in 1-2 days. Thank you for your patience and understanding. Dictated by: Kaylan Smith M.D. on 03/16/2022 at 8:14 Approved by: Kaylan Smith M.D. on 04/21/2022 at 16:06
== END ==
PROVIDERS: PCP Family Medicine; Referring Provider Student in an Organized Health Care Education/Training Program; Visit Provider Student in an Organized Health Care Education/Training Program
DX: Z78.0 Asymptomatic menopausal state (principal); Z13.820 Encounter for screening for osteoporosis; M85.89 Other specified disorders of bone density and structure, multiple sites
CPT/HCPCS: 77080

== ENCOUNTER → 2022-06-13 11:35 | Outpatient (CLI) | payer MEDICARE, SELFPAY ==
[2022-01-05 15:32] VITALS: BMI 24.3
--- NOTE | 2022-06-13 | DI.MG.S_ITS ---
BILATERAL DIGITAL SCREENING MAMMOGRAM 3D/2D WITH CAD: 06/13/2022 CLINICAL: Routine screening. Family history of breast cancer. Comparison is made to exams dated: 03/23/2021 mammogram, 05/31/2018 mammogram, and 02/24/2015 mammogram - [facility]. Both breasts are heterogeneously dense, which may obscure small masses (category c / 51-75% glandular tissue). Current study was also evaluated with a Computer Aided Detection (CAD) system. There are benign calcifications in the left breast. No significant masses, calcifications, or other findings are seen in either breast. There has been no significant interval change. IMPRESSION: BENIGN There is no mammographic evidence of malignancy. A 1 year screening mammogram is recommended. Based on the Tyrer Cuzick model (a risk assessment model) the patient's lifetime risk is 9.5% and her 10 year risk is 8.6%. According to the ACR, ACS, and NCCN guidelines, an annual breast MRI exam along with mammogram is recommended if the patient's lifetime risk is 20% or greater. This exam was interpreted at Station ID: [id number]. NOTE: For mammograms, a report in lay terms will be sent to the patient. Approximately 15% of breast malignancies will not be visualized mammographically. In the management of a palpable breast mass, a negative mammogram must not discourage biopsy of a clinically suspicious lesion. Electronically Signed By: Megan patel/vladimir:06/13/2022 16:49:14 letter sent: Normal Exam ACR BI-RADS Category 2: Benign Finding(s) 3342F
== END ==
PROVIDERS: PCP Family Medicine; Referring Provider Family Medicine; Visit Provider Family Medicine
DX: Z12.31 Encounter for screening mammogram for malignant neoplasm of breast (principal); Z80.3 Family history of malignant neoplasm of breast
CPT/HCPCS: 77063; 77067

== ENCOUNTER 2022-07-07 08:10 | Emergency (ER) | payer OTHER, MEDICARE, SELFPAY ==
[2022-01-05 15:32] VITALS: BMI 24.3
[2022-07-07] VITALS (30 sets, daily range): BP systolic 105–164; BP diastolic 54–75; PULSE 67–88; RESP 10–20; TEMP 36.3; O2SAT 79–98; BMI 22.8
--- NOTE | 2022-07-07 08:16 | DI.RAD.S_ITS ---
PROCEDURE: XR CHEST 1V INDICATIONS: trauma TECHNIQUE: One view of the chest was acquired. COMPARISON: None. FINDINGS: Surgical changes and devices: None. Lungs and pleura: Lungs are clear. No pleural effusions or pneumothorax. Mediastinum: Mediastinal contours appear normal. Cardiomegaly with a somewhat bottle shaped contour. Bones and chest wall: No suspicious bony lesions. Overlying soft tissues appear unremarkable. IMPRESSION: Cardiomegaly. Comment: It is noted that the patient is scheduled for a CT of the chest, abdomen, and pelvis. Dictated by: Festus Watts M.D. on 07/07/2022 at 8:39 Approved by: Festus Watts M.D. on 07/07/2022 at 8:41
--- NOTE | 2022-07-07 08:16 | DI.RAD.S_ITS ---
PROCEDURE: XR PELVIS 1-2V INDICATIONS: trauma TECHNIQUE: 1 view(s) of the pelvis acquired. COMPARISON: None. FINDINGS: Bones: No fractures or dislocations. No suspicious bony lesions. Soft tissues: Visualized bowel gas pattern is normal. No suspicious soft tissue calcifications. IMPRESSION: No evidence acute bony abnormality of the pelvis. If clinical suspicion and/or symptoms persist, further assessment with repeat plain films, or advanced imaging (e.g., CT, MRI, or bone scan) may be helpful for further assessment. Dictated by: Festus Watts M.D. on 07/07/2022 at 8:44 Approved by: Festus Watts M.D. on 07/07/2022 at 8:44
--- NOTE | 2022-07-07 08:17 | DI.CT.S_ITS ---
PROCEDURE: CT CHEST ABD PEL W CON INDICATIONS: Trauma TECHNIQUE: After the administration of oral and intravenous contrast, axial sections acquired from the supraclavicular neck to the pubic symphysis. Coronal and sagittal reformats were performed. For radiation dose reduction, the following was used: automated exposure control, adjustment of mA and/or kV according to patient size. COMPARISON: [facility], CT, CT CERVICAL SPINE WO CON, 07/07/2022, 8:38. FINDINGS: Image quality: Excellent. CHEST: Lower Neck: No enlarged lymph nodes. Thyroid: Within normal limits. Axillae: No enlarged lymph nodes. Chest Wall: There is subcutaneous edema in the right lower neck and left anterior upper chest wall. Mild pectus excavatum. Lungs and Airways: No findings to suggest pulmonary contusion. Mild interstitial prominence and bibasilar atelectasis. There is a 0.9 x 1.3 cm spiculated nodule in the right lower lobe (series 3, image 202). Pleura: No pneumothorax or pleural effusions. Heart: Heart size is normal. No pericardial effusion. Thoracic Vessels: The aorta and pulmonary arteries demonstrate normal size. Mediastinum and Shahrzad: No enlarged lymph nodes. Esophagus: No wall thickening. Small hiatal hernia. ABDOMEN: Liver: Unremarkable. Gallbladder: Gallbladder contains a rim calcified gallstone. Biliary ducts: Unremarkable. Pancreas: Unremarkable. Spleen: Unremarkable. Adrenal Glands: Unremarkable. Kidneys and Ureters: Unremarkable. Stomach and Bowel: Stomach, small bowel loops, and colon are normal in caliber. Diverticulosis without acute diverticulitis. There is a large amount of stool in colon. Peritoneum: No abnormal intraperitoneal fluid. No free air. Ventral Wall: No hernia. Abdominal Nodes: No retroperitoneal or mesenteric adenopathy by size criteria. Vessels: Aorta and inferior vena cava are normal in size. PELVIS: Pelvic Organs: Unremarkable. Bladder: Unremarkable. Pelvic Nodes: No enlarged lymph nodes. Miscellaneous: No inguinal hernias are seen. Bones: Unremarkable. Mild degenerative changes are noted in the lower cervical spine, thoracic spine and lumbar spine. IMPRESSION: 1. No visceral in thorax, abdomen or pelvis. 2. Subcutaneous edema in the right lower neck and left upper anterior chest, compatible with soft tissue contusions. 3. There is a 0.9 x 1.3 cm spiculated nodule in the right lower lobe, concerning for primary lung cancer. Recommend PET-CT for follow-up evaluation. 4. Cholelithiasis. 5. Diverticulosis without diverticulitis. The result was discussed with Dr. Blackwell. Dictated by: Narayan Collado M.D. on 07/07/2022 at 9:31 Approved by: Narayan Collado M.D. on 07/07/2022 at 9:43
--- NOTE | 2022-07-07 08:17 | DI.CT.S_ITS ---
PROCEDURE: CT HEAD/BRAIN WO CON INDICATIONS: Trauma TECHNIQUE: Noncontrast 4.5 mm thick angled axial sections acquired from the foramen magnum to the vertex, with coronal and sagittal reformats. For radiation dose reduction, the following was used: automated exposure control, adjustment of mA and/or kV according to patient size. COMPARISON: None. FINDINGS: Image quality: Excellent. CSF spaces: Basal cisterns are patent. No extra-axial fluid collections. The ventricles are symmetric in size and shape. Brain: No intracranial bleeds or masses. There is cerebral volume loss for age, with resultant ventricular and sulcal prominence. There are periventricular and deep white matter chronic small vessel ischemic changes. There is intracranial internal carotid artery atherosclerosis. Skull and face: Calvarium and visualized facial bones appear intact, without suspicious lesions. Sinuses: Visualized sinuses and mastoids are clear. IMPRESSION: 1. No acute intracranial abnormalities. 2. Cerebral volume loss and chronic microvascular ischemic changes. Dictated by: Narayan Collado M.D. on 07/07/2022 at 9:23 Approved by: Narayan Collado M.D. on 07/07/2022 at 9:25
--- NOTE | 2022-07-07 08:17 | DI.CT.S_ITS ---
PROCEDURE: CT CERVICAL SPINE WO CON INDICATIONS: Trauma TECHNIQUE: Noncontrast 3 mm thick sections acquired from the skull base to the T4 level. Sagittal and coronal reformats were then constructed. For radiation dose reduction, the following was used: automated exposure control, adjustment of mA and/or kV according to patient size. COMPARISON: None. FINDINGS: Image quality: Excellent. Bones: No fractures or dislocations. 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 Bilateral facet arthropathy, most pronounced at C3-C4 and C4-C5. Severe atlantoaxial joint degeneration. Osteopenia. Visualized superior ribs are intact. Soft tissues: Prevertebral soft tissues are normal in thickness. No paravertebral hematomas. No apical pneumothoraces. IMPRESSION: 1. No cervical spine fractures. 2. Degenerative changes. 3. Osteopenia. Dictated by: Narayan Collado M.D. on 07/07/2022 at 9:25 Approved by: Narayan Colaldo M.D. on 07/07/2022 at 9:30
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
[2022-07-07 08:26] LABS: Add Manual Diff / Slide Review NO; Basophils Absolute Auto 100 /uL (0-100); Basophils Percent Auto 0.5 % (0-2); Eosinophils Absolute Auto 100 /uL (0-450); Eosinophils Percent Auto 1.5 % (2-4); Hematocrit 35.1 % (36-46); Hemoglobin 12.1 g/dL (12.0-16.0); Lymphocytes Absolute Auto 1500 /uL (1100-4500); Lymphocytes Percent Auto 14.8 % (25-40); Mean Corpuscular HGB Conc 34.6 % (30-36); Mean Corpuscular Hemoglobin 30.3 PG (26-34); Mean Corpuscular Volume 87.4 fL (80-100); Monocytes Absolute Auto 500 /uL (0-900); Monocytes Percent Auto 4.8 % (3-14); Neutrophils Absolute Auto 8000 /uL (1500-7000); Neutrophils Percent Auto 78.4 % (50-75); Platelet Count 169 X10^3/uL (150-400); Red Blood Cell Count 4.01 X10^6/uL (4.0-5.2); Red Cell Distribution Width 12.8 % (11.6-14.8); White Blood Cell Count 10.2 X10^3/uL (4.5-11.0)
[2022-07-07 08:35] LABS: INR 1.1 (0.9-1.3); Prothrombin Time 12.5 SECONDS (10.1-12.7)
[2022-07-07 08:38] LABS: PTT Partial Thromboplastin Tim 25 SECONDS (26-36)
[2022-07-07] MEDS: HYDROMORPHONE 0.5 MG INJ IV ×3 (08:48→22:08)
[2022-07-07] MEDS: ONDANSETRON 4 MG/2 ML INJ (08:48)
[2022-07-07 08:52] LABS: Alanine Aminotransferase 50 IU/L (<35); Albumin 4.1 g/dL (3.5-5.0); Albumin Globulin Ratio 1.5 (1.0-2.8); Alkaline Phosphatase 45 U/L (38-126); Aspartate Aminotransferase 60 IU/L (14-36); BUN Creatinine Ratio 25.4 (6-22); Bilirubin Total 1.3 mg/dL (0.2-1.3); Blood Urea Nitrogen 15 mg/dL (7-17); Calcium 8.4 mg/dL (8.4-10.2); Carbon Dioxide 25 mmol/L (22-32); Chloride 106 mmol/L (98-107); Creatine Kinase 449 U/L (30-135); Estimated Glomerular Filt Rate > 60 mL/min (>60); Globulin 2.8 g/dL (1.7-4.1); Glucose 120 mg/dL (80-110); Lipase 83 U/L (23-300); Potassium 3.6 mmol/L (3.4-5.1); Sodium 137 mmol/L (137-145); Total Protein 6.9 g/dL (6.3-8.2)
[2022-07-07 08:59] LABS: Lactate (Lactic Acid) 1.6 mmol/L (0.7-2.1)
[2022-07-07 09:04] LABS: Troponin I < 0.012 ng/mL (0.01-0.034)
[2022-07-07 09:07] LABS: Ethanol (ETOH) < 10 mg/dL
[2022-07-07 09:08] LABS: CKMB % Relative Index 2.4 % (1.5-5.0)
[2022-07-07 09:15] LABS: HEMOLYSIS 55 (0-50)
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
[2022-07-07] MEDS: OXYCODONE IR 5 MG TABLET PO ×2 (12:18→16:41)
[2022-07-07] MEDS: ACETAMINOPHEN 325 MG TABLET 650 MG PO ×2 (12:19→22:07)
[2022-07-07] MEDS: CYCLOBENZAPRINE 10 MG TABLET PO (14:32)
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
--- NOTE | 2022-07-07 19:43 | PC.NURSE ---
0730 C-spine held and aspen collar placed on patient. Patient tolerating well. She states no pain at this point in time. She denies any numbness or tingling. Family and patient updated on plan of care. Call light at the bedside. Will continue to monitor.
[2022-07-07 21:09] LABS: COVID19 -Nasal RAPID Negative (Negative)
== END 2022-07-07 22:55 | disposition short-term general hospital (02) ==
PROVIDERS: Emergency Medicine; Emergency Provider Emergency Medicine; PCP Family Medicine
DX: S12.400A Unspecified displaced fracture of fifth cervical vertebra, initial encounter for closed fracture (principal); G95.89 Other specified diseases of spinal cord; S10.93XA Contusion of unspecified part of neck, initial encounter; S20.212A Contusion of left front wall of thorax, initial encounter; M48.02 Spinal stenosis, cervical region; R10.9 Unspecified abdominal pain; V43.62XA Car passenger injured in collision with other type car in traffic accident, initial encounter; Z20.822 Contact with and (suspected) exposure to COVID-19
CPT/HCPCS: 36415; 70450; 71045; 71260; 72125; 72141; 72170; 73130; 73590; 73630; 74177; 80053; 80320; 82550; 82553; 83605; 83690; 84484; 85025; 85610; 85730; 86850; 86900; 86901; 87635; 93005; 93010; 96374; 96376; 99285; 99291; C9803; G0390; J1170; J2405; Q9967

== ENCOUNTER 2023-07-20 00:12 | Emergency (ER) | payer MEDICARE, SELFPAY ==
[2023-06-29 08:45] VITALS: BMI 24.3
[2023-07-20] VITALS (10 sets, daily range): BP systolic 138–153; BP diastolic 61–74; PULSE 67–89; RESP 20–22; TEMP 36.6; O2SAT 96–99; BMI 20.3
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
--- NOTE | 2023-07-20 01:00 | DI.CT.S_ITS ---
PROCEDURE: CT ABDOMEN PELVIS W CON INDICATIONS: Left-sided abdominal pain TECHNIQUE: After the administration of intravenous contrast, axial sections acquired from the lung bases to the pubic symphysis. Coronal and sagittal reformats were performed. For radiation dose reduction, the following was used: automated exposure control, adjustment of mA and/or kV according to patient size. COMPARISON: None. FINDINGS: Image quality: Diagnostic. Lower Chest: Subsegmental atelectasis. ABDOMEN: Liver: No solid mass. Gallbladder: Cholelithiasis. No wall thickening or pericholecystic fluid. Biliary ducts: No biliary dilation. Pancreas: No ductal dilation. Spleen: Size is within normal limits. Adrenal Glands: No adrenal nodules. Kidneys and Ureters: No hydronephrosis. No solid mass. No complex renal cystic lesion which requires follow up. Stomach and Bowel: Normal colonic caliber, without significant wall thickening. Colonic diverticulosis without acute diverticulitis. Peritoneum: No abnormal intraperitoneal fluid. No free air. Ventral Wall: No hernia. Abdominal Nodes: No retroperitoneal or mesenteric adenopathy by size criteria. Vessels: Aorta and inferior vena cava are normal in size. PELVIS: Pelvic Organs: Unremarkable. Bladder: Unremarkable. Pelvic Nodes: No enlarged lymph nodes. Miscellaneous: No inguinal hernias are seen. Bones: L4 superior endplate compression deformity, new since 07/07/2022. Schmorl's node at the superior endplate of L1. Discogenic degenerative changes of the visualized spine. IMPRESSION: No acute findings in the abdomen or pelvis to explain patient's symptoms. Cholelithiasis, as before, without CT evidence of acute cholecystitis. Diverticulosis without CT evidence of acute diverticulitis. Probable superior endplate L4 compression deformity, chronic appearing, but new since 07/20/2023. Dictated by: Mariah Camacho M.D. on 07/20/2023 at 2:24 Approved by: Mariah Camacho M.D. on 07/20/2023 at 2:32
[2023-07-20] MEDS: LORazepam 0.5 MG TABLET PO (01:11)
[2023-07-20 01:16] LABS: Bacteria Urine None Seen; Culture Indicated Urine Cult Not Indicated; RBC Urine None Seen (0-5/HPF); Squamous Epithelial Cell Urine 0-1 /HPF (0-5/HPF); WBC Urine None Seen (0-5/HPF)
[2023-07-20 01:17] LABS: Add Manual Diff / Slide Review NO; Basophils Absolute Auto 100 /uL (0-100); Basophils Percent Auto 0.8 % (0-2); Eosinophils Absolute Auto 0 /uL (0-450); Eosinophils Percent Auto 0.6 % (2-4); Hematocrit 32.5 % (36-46); Hemoglobin 11.7 g/dL (12.0-16.0); Lymphocytes Absolute Auto 1500 /uL (1100-4500); Lymphocytes Percent Auto 20.3 % (25-40); Mean Corpuscular Hemoglobin 31.4 PG (26-34); Mean Corpuscular Volume 87.2 fL (80-100); Monocytes Absolute Auto 600 /uL (0-900); Monocytes Percent Auto 8.3 % (3-14); Neutrophils Absolute Auto 5300 /uL (1500-7000); Platelet Count 212 X10^3/uL (150-400); Red Blood Cell Count 3.72 X10^6/uL (4.0-5.2); Red Cell Distribution Width 12.5 % (11.6-14.8); White Blood Cell Count 7.5 X10^3/uL (4.5-11.0)
[2023-07-20 01:39] LABS: Alanine Aminotransferase 10 IU/L (<35); Albumin 4.1 g/dL (3.5-5.0); Albumin Globulin Ratio 1.6 (1.0-2.8); Alkaline Phosphatase 49 U/L (38-126); Aspartate Aminotransferase 23 IU/L (14-36); BUN Creatinine Ratio 18.4 (6-22); Bilirubin Total 1.9 mg/dL (0.2-1.3); Blood Urea Nitrogen 9 mg/dL (7-17); Calcium 9.2 mg/dL (8.4-10.2); Carbon Dioxide 19 mmol/L (22-32); Chloride 97 mmol/L (98-107); Estimated Glomerular Filt Rate > 60 mL/min (>60); Globulin 2.6 g/dL (1.7-4.1); Glucose 103 mg/dL (80-110); HEMOLYSIS < 15 (0-50); Lipase 56 U/L (23-300); Sodium 128 mmol/L (137-145); Total Protein 6.7 g/dL (6.3-8.2)
[2023-07-20 01:42] LABS: Potassium 2.7 mmol/L (3.4-5.1)
[2023-07-20] MEDS: POTASSIUM CHLORIDE 20 MEQ TAB 40 MEQ PO (03:03)
== END 2023-07-20 03:14 | disposition home or self-care (01) ==
PROVIDERS: Emergency Provider Emergency Medicine; PCP Family Medicine
DX: G20.A1 Parkinson's disease without dyskinesia, without mention of fluctuations (principal); E87.6 Hypokalemia; K59.00 Constipation, unspecified
CPT/HCPCS: 36415; 74177; 80053; 81003; 81015; 83690; 85025; 99284; Q9967

== ENCOUNTER → 2023-07-24 11:51 | Outpatient (CLI) | payer MEDICARE, SELFPAY ==
[2023-06-29 08:45] VITALS: BMI 24.3
[2023-07-24 12:48] LABS: Add Manual Diff / Slide Review NO; Basophils Absolute Auto 100 /uL (0-100); Basophils Percent Auto 1.3 % (0-2); Eosinophils Absolute Auto 100 /uL (0-450); Eosinophils Percent Auto 1.8 % (2-4); Hematocrit 33.6 % (36-46); Hemoglobin 11.8 g/dL (12.0-16.0); Lymphocytes Absolute Auto 900 /uL (1100-4500); Lymphocytes Percent Auto 22.4 % (25-40); Mean Corpuscular Hemoglobin 31.3 PG (26-34); Mean Corpuscular Volume 89.2 fL (80-100); Monocytes Absolute Auto 300 /uL (0-900); Monocytes Percent Auto 7.9 % (3-14); Neutrophils Absolute Auto 2800 /uL (1500-7000); Neutrophils Percent Auto 66.6 % (50-75); Platelet Count 220 X10^3/uL (150-400); Red Blood Cell Count 3.77 X10^6/uL (4.0-5.2); Red Cell Distribution Width 12.6 % (11.6-14.8); White Blood Cell Count 4.2 X10^3/uL (4.5-11.0)
[2023-07-24 13:15] LABS: Hemoglobin A1C% w Est Avg Glu 5.2 % (4.0-6.0)
[2023-07-24 13:16] LABS: Alanine Aminotransferase 10 IU/L (<35); Albumin 4.2 g/dL (3.5-5.0); Albumin Globulin Ratio 1.4 (1.0-2.8); Alkaline Phosphatase 52 U/L (38-126); BUN Creatinine Ratio 16.4 (6-22); Bilirubin Total 1.2 mg/dL (0.2-1.3); Blood Urea Nitrogen 9 mg/dL (7-17); Calcium 9.4 mg/dL (8.4-10.2); Carbon Dioxide 20 mmol/L (22-32); Chloride 104 mmol/L (98-107); Estimated Glomerular Filt Rate > 60 mL/min (>60); Glucose 95 mg/dL (80-110); HEMOLYSIS < 15 (0-50); Potassium 3.8 mmol/L (3.4-5.1); Sodium 133 mmol/L (137-145); Total Protein 7.2 g/dL (6.3-8.2)
[2023-07-24 13:30] LABS: Free T3, Triiodothyronine Free 3.41 pg/mL (2.77-5.27); Free T4, Direct Thyroxine 1.24 ng/dL (0.78-2.19)
[2023-07-24 13:43] LABS: Thyroid Stimulating Hormone 0.479 uIU/mL (0.47-4.68)
[2023-07-27 16:03] LABS: Aspartate Aminotransferase 25 IU/L (14-36)
== END ==
PROVIDERS: PCP Family Medicine; Referring Provider Family Medicine; Visit Provider Family Medicine
DX: R10.9 Unspecified abdominal pain (principal); R73.9 Hyperglycemia, unspecified; R53.83 Other fatigue; E78.5 Hyperlipidemia, unspecified; E87.6 Hypokalemia
CPT/HCPCS: 36415; 80053; 83036; 84439; 84443; 84481; 85025

== ENCOUNTER → 2023-07-31 08:25 | Outpatient (CLI) | payer MEDICARE, SELFPAY ==
[2023-06-29 08:45] VITALS: BMI 24.3
[2023-07-31 09:16] LABS: BUN Creatinine Ratio 17.9 (6-22); Blood Urea Nitrogen 10 mg/dL (7-17); Calcium 9.4 mg/dL (8.4-10.2); Carbon Dioxide 25 mmol/L (22-32); Chloride 103 mmol/L (98-107); Cholesterol 129 mg/dL (140-199); Estimated Glomerular Filt Rate > 60 mL/min (>60); Glucose 107 mg/dL (80-110); HDL Cholesterol 62 mg/dL (40-60); HEMOLYSIS < 15 (0-50); LDL Cholesterol Calculated 55 mg/dL (<100); Potassium 4.1 mmol/L (3.4-5.1); Sodium 135 mmol/L (137-145); Triglycerides 59 mg/dL (35-150)
[2023-07-31 09:24] LABS: High Sensitivity CRP - Cardiac < 0.3 mg/L (1.0-3.0)
== END ==
PROVIDERS: PCP Family Medicine; Referring Provider Family Medicine; Visit Provider Family Medicine
DX: E87.6 Hypokalemia (principal); E78.5 Hyperlipidemia, unspecified; R10.9 Unspecified abdominal pain; R53.83 Other fatigue; R73.9 Hyperglycemia, unspecified
CPT/HCPCS: 36415; 80048; 80061; 86140

== ENCOUNTER → 2023-08-27 14:02 | Outpatient (CLI) | payer MEDICARE, SELFPAY ==
[2023-06-29 08:45] VITALS: BMI 24.3
--- NOTE | 2023-08-27 | DI.MG.S_ITS ---
BILATERAL DIGITAL SCREENING MAMMOGRAM 3D/2D WITH CAD: 08/27/2023 CLINICAL: Routine screening. Family history of breast cancer. Comparison is made to exams dated: 06/13/2022 mammogram, 03/23/2021 mammogram, and 05/31/2018 mammogram - [facility]. Both breasts are heterogeneously dense, which may obscure small masses (category c / 51-75% glandular tissue). Current study was also evaluated with a Computer Aided Detection (CAD) system. There are benign calcifications in the left breast. No significant masses, calcifications, or other findings are seen in either breast. There has been no significant interval change. IMPRESSION: BENIGN There is no mammographic evidence of malignancy. A 1 year screening mammogram is recommended. Based on the Tyrer Cuzick model (a risk assessment model) the patient's lifetime risk is 8.8% and her 10 year risk is 8.8%. According to the ACR, ACS, and NCCN guidelines, an annual breast MRI exam along with mammogram is recommended if the patient's lifetime risk is 20% or greater. This exam was interpreted at Station ID: [id number]. NOTE: For mammograms, a report in lay terms will be sent to the patient. Approximately 15% of breast malignancies will not be visualized mammographically. In the management of a palpable breast mass, a negative mammogram must not discourage biopsy of a clinically suspicious lesion. Electronically Signed By: Kaylan evans/vladimir:08/27/2023 15:20:30 letter sent: Normal Exam ACR BI-RADS Category 2: Benign Finding(s) 3342F
== END ==
PROVIDERS: PCP Family Medicine; Referring Provider Family Medicine; Visit Provider Family Medicine
DX: Z12.31 Encounter for screening mammogram for malignant neoplasm of breast (principal); Z80.3 Family history of malignant neoplasm of breast; R92.333 Mammographic heterogeneous density, bilateral breasts
CPT/HCPCS: 77063; 77067

== ENCOUNTER 2023-09-14 17:55 | Emergency (ER) | payer MEDICARE, SELFPAY ==
[2023-06-29 08:45] VITALS: BMI 24.3
[2023-09-14 18:10] VITALS: BP 123/65; PULSE 85; RESP 18; TEMP 36.9; O2SAT 98
[2023-09-14 19:55] LABS: Alanine Aminotransferase 5 IU/L (<35); Albumin 3.9 g/dL (3.5-5.0); Albumin Globulin Ratio 1.4 (1.0-2.8); Alkaline Phosphatase 48 U/L (38-126); Aspartate Aminotransferase 24 IU/L (14-36); BUN Creatinine Ratio 18.5 (6-22); Bilirubin Total 1.3 mg/dL (0.2-1.3); Blood Urea Nitrogen 10 mg/dL (7-17); Carbon Dioxide 25 mmol/L (22-32); Chloride 103 mmol/L (98-107); Estimated Glomerular Filt Rate > 60 mL/min (>60); Globulin 2.7 g/dL (1.7-4.1); Glucose 94 mg/dL (80-110); HEMOLYSIS < 15 (0-50); Potassium 3.5 mmol/L (3.4-5.1); Sodium 135 mmol/L (137-145); Total Protein 6.6 g/dL (6.3-8.2)
[2023-09-14 20:01] LABS: Add Manual Diff / Slide Review NO; Basophils Absolute Auto 0 /uL (0-100); Basophils Percent Auto 0.8 % (0-2); Eosinophils Absolute Auto 0 /uL (0-450); Hematocrit 30.7 % (36-46); Hemoglobin 10.9 g/dL (12.0-16.0); Lymphocytes Absolute Auto 1300 /uL (1100-4500); Lymphocytes Percent Auto 27.1 % (25-40); Mean Corpuscular HGB Conc 35.5 % (30-36); Mean Corpuscular Hemoglobin 32.1 PG (26-34); Mean Corpuscular Volume 90.4 fL (80-100); Monocytes Absolute Auto 500 /uL (0-900); Monocytes Percent Auto 9.3 % (3-14); Neutrophils Absolute Auto 3100 /uL (1500-7000); Neutrophils Percent Auto 61.8 % (50-75); Platelet Count 193 X10^3/uL (150-400); Red Blood Cell Count 3.39 X10^6/uL (4.0-5.2); Red Cell Distribution Width 12.6 % (11.6-14.8)
[2023-09-14 20:15] VITALS: BP 125/61; PULSE 73; RESP 18; O2SAT 98
--- NOTE | 2023-09-14 20:43 | ED_ITS ---
HPI - General Adult General Chief complaint: Altered Mental Status Stated complaint: poss hallucinations/has parkinsons/covid test Time Seen by Provider: 09/14/23 19:18 Source: patient and family Mode of arrival: Wheelchair Limitations: no limitations History of Present Illness HPI narrative: This is a 77-year-old female with history of Parkinson's disease who presents with complaint of hallucinations. Patient's family state they noted that she is convinced that the dog has bugs. They state they have not noticed a lot of other changes but has been arguing about it. They note that she recently had her Parkinson's medications changed to new formulation of carbidopa levodopa which she has been on for 6 days which they feel like has been helpful but noticed some changes in the last 24 hours. Last dose of medication was at 4:00 p.m. today. She has not had any fevers. She has been conversant otherwise. She has not describing other hallucinations they are not describing other hallucinations. No chest pain, no shortness of breath, no nausea or vomiting no diarrhea constipation, no new urinary symptoms. She has not had any significant new changes to movement. Family states that she seemed to be responding well and moving better and having better control of her symptoms with a new medication. Before she was on carbidopa levodopa 50/200 1 tablet extended release 5 times daily as well as a short-acting carbidopa levodopa 25/100, half tablet 5 times daily. She was switched to carbidopa levodopa but an extended release formulation that is 48.5/185 mg, 3 tablets q.i.d. patient's other medications include gabapentin 400 mg 1 or 2 times daily, Tylenol, MiraLax and a statin. She has not had any other medication changes. Does have a history of rectal prolapse has had surgery for this several years ago. No tobacco, alcohol or recreational drugs. She follows with Dr. Babin for Neurology at [facility]. Patient is accompanied by her daughter and . They do note she had 1 similar episode in the past where her electrolytes were abnormal. Related Data Home Medications Medication Instructions Recorded Confirmed cholecalciferol (vitamin D3) 50 2,000 iu PO Q DAY ##0 05/24/11 09/04/23 mcg (2,000 unit) capsule (Vitamin D3) acetaminophen 500 mg tablet 500 mg PO Q6H PRN 06/27/23 09/04/23 (Tylenol Extra Strength) gabapentin 400 mg capsule 400 mg PO BID 06/27/23 09/04/23 [id number] 8 mg-folic 400 1 tab PO DAILY 06/27/23 09/04/23 mcg-K 50 mcg-lutein 300 mcg tablet (Centrum Silver Women) polyethylene glycol 3350 17 17 g PO DAILY 06/27/23 09/04/23 gram/dose oral powder (Miralax) vit no.[id number] PO 06/27/23 09/04/23 [Classic ] sennosides 8.6 mg capsule (senna) 8.6 mg PO DAILY 06/27/23 09/04/23 carbidopa 25 mg-levodopa 100 mg 0.5 tab PO 5XD 07/24/23 09/04/23 tablet carbidopa ER 48.75 mg-levodopa 195 5 cap PO 5XD 09/04/23 09/04/23 mg capsule,extended release (Rytary) carbidopa ER 50 mg-levodopa 200 mg 1 tab PO 5XD 09/04/23 09/04/23 tablet,extended release Previous Rx's Medication Instructions Recorded estradiol 10 mcg vaginal tablet 10 mcg vaginal 2XW #24 tabs 02/14/23 potassium chloride 10 mEq 10 meq PO DAILY #14 tabs 07/24/23 tablet,extended release pravastatin 10 mg tablet 10 mg PO DAILY #90 tabs 09/04/23 Allergies Allergy/AdvReac Type Severity Reaction Status Date / Time benzoyl peroxide Allergy Severe FACIAL Verified 07/24/23 11:04 SWELLING Sulfa (Sulfonamide Allergy Severe SWELLING, Verified 07/24/23 11:04 Antibiotics) HIVES lanolin AdvReac Mild Rash Verified 07/24/23 11:04 Review of Systems Review of Systems ROS Unobtainable: All systems reviewed & are unremarkable except as noted in HPI and below Patient History Medical History Contracture of palmar fascia Fever Osteopenia Measles Hemorrhoid Liver laceration Rectocele Vaginal vault prolapse Osteoarthritis Hx of flexible sigmoidoscopy (12/03/18) Benign colonic polyp Insomnia Coccidioidomycosis (~09/2003) Surgical History Anesthesia H/O cervical spine surgery (~07/07/22) History of repair of rectocele (~12/22/21) H/O arthroscopic knee surgery S/P SABRA-BSO (total abdominal hysterectomy and bilateral salpingo-oophorectomy) History of Family History Mother Hypertension Gallstones Heart disease Father Hypertension Heart disease Grandmother Diabetes mellitus Grandmother Stroke Brother Heart disease Cancer Brother Thrombocytosis Social History household members: spouse Smoking Status: Never smoker second hand exposure: No alcohol intake: former substance use type: does not use Smoking Status: Never smoker alcohol intake frequency: holidays/special occasions only Substance Use Type: does not use Exam Narrative Exam Narrative: GEN: well nourished, well appearing female, alert and oriented, patient appears to be in mild distress. Patient is somewhat slow to answer questions. HEENT: Atraumatic, pupils are equal round reactive to light, extraocular movements are intact, nares are clear, TMs are clear with no fluid, there is no conjunctival pallor. Throat is clear without any exudates, erythema, tonsillar enlargement or uvular deviation, no facial droop. HEART: Regular rate and rhythm without murmur, clicks, rubs. LUNGS:Lungs clear to auscultation, no wheezes, rales, crackles, chest moves symmetrically ABD:bowel sounds normal, soft, nondistended, non-tender, no guarding, rebound, rigidity, no masses noted, no hepatosplenomegaly :No CVA tenderness MSCL: Non-tender, no muscle atrophy, muscles strength 5/5 upper and lower extremities, full range of motion NEURO:CN 2-12 intact, sensation normal. Patient is somewhat focused on bugs on the dog but otherwise appropriate SKIN: Rash, erythema or other skin changes noted. Initial Vital Signs Initial Vital Signs: Vital Signs Temperature 98.5 F 09/14/23 18:10 Pulse Rate 85 09/14/23 18:10 Respiratory Rate 18 09/14/23 18:10 Blood Pressure 123/65 09/14/23 18:10 Pulse Oximetry 98 09/14/23 18:10 Oxygen Delivery Method Room Air 09/14/23 18:10 Course Orders Ordered: ED Orders 09/14/23 19:30 Comprehensive Metabolic Panel Urgent 09/14/23 19:52 Complete Blood Count AUTO DIFF Stat Thyroid Stimulating Hormone Stat 09/14/23 20:30 Urinalysis and Microscopic Stat 09/14/23 22:10 Urine Culture Stat Vital Signs Vital signs: Vital Signs - 8 hr 09/14/23 18:10 09/14/23 20:15 09/14/23 22:25 Temperature 98.5 F 98.0 F Pulse Rate 85 73 82 Respiratory Rate 18 18 18 Blood Pressure 123/65 125/61 143/80 H Pulse Oximetry 98 98 99 Oxygen Delivery Method Room Air Room Air Room Air Medical Decision Making Lab Data 09/14/23 19:52 09/14/23 19:30 Labs: Lab Results 09/14/23 09/14/23 09/14/23 Range/Units 19:30 19:52 20:30 WBC 5.0 (4.5-11.0) X10^3/uL RBC 3.39 L (4.0-5.2) X10^6/uL Hgb 10.9 L (12.0-16.0) g/dL Hct 30.7 L (36-46) % MCV 90.4 (80-100) fL MCH 32.1 (26-34) PG MCHC 35.5 (30-36) % RDW 12.6 (11.6-14.8) % Plt Count 193 (150-400) X10^3/uL Neut % (Auto) 61.8 (50-75) % Lymph % (Auto) 27.1 (25-40) % [place] % (Auto) 9.3 (3-14) % Eos % (Auto) 1.0 L (2-4) % Baso % (Auto) 0.8 (0-2) % Neut # (Auto) 3100 (3721-9742) /uL Lymph # (Auto) 1300 (2292-7493) /uL [place] # (Auto) 500 (0-900) /uL Eos # (Auto) 0 (0-450) /uL Baso # (Auto) 0 (0-100) /uL Sodium 135 L (137-145) mmol/L Potassium 3.5 (3.4-5.1) mmol/L Chloride 103 (98-107) mmol/L Carbon Dioxide 25 (22-32) mmol/L BUN 10 (7-17) mg/dL Creatinine 0.54 (0.52-1.04) mg/dL Estimated GFR > 60 (>60) mL/min BUN/Creatinine Ratio 18.5 (6-22) Glucose 94 (80-110) mg/dL Calcium 9.0 (8.4-10.2) mg/dL Total Bilirubin 1.3 (0.2-1.3) mg/dL AST 24 (14-36) IU/L ALT 5 (<35) IU/L Alkaline Phosphatase 48 (38-126) U/L Total Protein 6.6 (6.3-8.2) g/dL Albumin 3.9 (3.5-5.0) g/dL Globulin 2.7 (1.7-4.1) g/dL Albumin/Globulin Ratio 1.4 (1.0-2.8) TSH 0.513 (0.47-4.68) uIU/mL Urine Color Yellow Urine Appearance Sl cloudy Urine pH 6.5 (4.5-8.0) Ur Specific [place] 1.020 (1.000-1.035) Urine Protein Negative (Negative) Urine Glucose (UA) Negative (Negative) g/dL Urine Ketones 1+ H (NEGATIVE) Urine Occult Blood Negative (Negative) Urine Nitrate Negative (Negative) Urine Bilirubin Negative (NEGATIVE) Urine Urobilinogen 1.0 (0.2) E.U./dL Ur Leukocyte Esterase Trace H (NEGATIVE) Urine RBC None seen (0-5/HPF) Urine WBC 0-1/hpf (0-5/HPF) Ur Squamous Epith Cells 1-5 /hpf (0-5/HPF) Urine Bacteria Occasional (0-1) (None) Ur Culture Indicated? Cult not indicated Vol Urine Centrifuged 10ml (spun) MDM Narrative Medical decision making narrative: 77-year-old female with known Parkinson's disorder presents with complaint of hallucinations described as thinking that the dog has bugs. Family is not really describing any other hallucinations currently. She is afebrile with overall appropriate vitals patient did have a recent change 6 days ago and her carbidopa levodopa changing to a different formulation dosing. They felt this was quite helpful for her movement. Patient started having symptoms in the last day. CBC shows a hemoglobin of 10 at baseline no white count normal platelets, CMP is negative no significant electrolyte changes glucose is 94 LFTs are negative TSH is 0.513. UA positive for ketones, trace leuks, 0-1 white cells, 1-5 squamous epithelial occasional bacteria. Discussed with family urine is not clear source for infection but can send for culture. Discuss more likely suspicion is her medication regimen changing. They have her home doses available will return to her regular regimen, contact her neurologist. If she continues to clear over the next day or so would continue with her prior regimen until further instructions from Neurology. Discussed if any worsening changes or there uncomfortable in any way to return to the ED. Discharge Plan Departure Patient Disposition: Home Clinical Impression: Hallucinations Activity Restrictions/Additional Instructions: Contact your neurology team to let them know about the recent changes. I suspect the current changes that you are seeing are from the new medication. I would recommend holding your current Parkinson's medications and returning to the prior schedule of medications you had before. Urine was sent for culture, this takes about 48-72 hours to result if positive we would contact you to start on antibiotic. Please return if symptoms are worsening, severe headaches, fevers, increasing alteration mental status, chest pain or shortness of breath, persistent vomiting, new movement changes or other new or concerning changes. Prescriptions: No Action cholecalciferol (vitamin D3) [Vitamin D3] 2,000 UNIT capsule 2,000 iu PO Q DAY Qty: 0 estradiol 10 mcg tablet 10 mcg vaginal 2XW Qty: 24 3RF gabapentin 400 mg capsule 400 mg PO BID Centrum Silver Women 8 mg iron-400 mcg-50 mcg tablet 1 tab PO DAILY vit [id number] [Classic ] PO senna 8.6 mg capsule 8.6 mg PO DAILY polyethylene glycol 3350 [Miralax] 17 gram/dose powder 17 g PO DAILY acetaminophen [Tylenol Extra Strength] 500 mg tablet 500 mg PO Q6H PRN carbidopa-levodopa 50-200 mg tablet extended release 1 tab PO 5XD Patient Comments: DECREASING, SWITCHING TO RYTARY carbidopa-levodopa 25-100 mg tablet 0.5 tab PO 5XD Patient Comments: taking 1/2 tab w/ carbidopa-levodopa 50mg/200mg XR per neuro recommendation potassium chloride 10 mEq tablet extended release 10 meq PO DAILY Qty: 14 0RF Rytary 48.75-195 mg capsule, extended release 5 cap PO 5XD Patient Comments: SWITCHING FROM LOWER DOSE CARBIDOPA-LEVODOPA TABLET pravastatin 10 mg tablet 10 mg PO DAILY Qty: 90 3RF Referrals: Sushma Morris DO [Primary Care Provider] - Stand Alone Forms: Patient Portal/API
[2023-09-14 20:44] LABS: Thyroid Stimulating Hormone 0.513 uIU/mL (0.47-4.68)
[2023-09-14 21:33] LABS: Appearance Urine UA SL CLOUDY; Bilirubin Urine UA NEGATIVE (NEGATIVE); Color Urine UA YELLOW; Glucose Urine UA NEGATIVE (Negative); Ketones Urine UA 1+ (NEGATIVE); Leukocyte Esterase Urine UA TRACE (NEGATIVE); Nitrite Urine UA NEGATIVE (Negative); Occult Blood Urine UA NEGATIVE (Negative); Protein Urine UA NEGATIVE (Negative)
[2023-09-14 21:41] LABS: Bacteria Urine Occasional (0-1); Culture Indicated Urine Cult Not Indicated; RBC Urine None Seen (0-5/HPF); Squamous Epithelial Cell Urine 1-5 /HPF (0-5/HPF); Urine Volume 10mL (spun); WBC Urine 0-1/HPF (0-5/HPF); pH Urine UA 6.5 (4.5-8.0)
[2023-09-14 22:25] VITALS: BP 143/80; PULSE 82; RESP 18; TEMP 36.7; O2SAT 99
== END 2023-09-14 22:25 | disposition home or self-care (01) ==
PROVIDERS: Emergency Provider Emergency Medicine; PCP Family Medicine
DX: R44.3 Hallucinations, unspecified (principal); G20.A1 Parkinson's disease without dyskinesia, without mention of fluctuations; Z79.899 Other long term (current) drug therapy
CPT/HCPCS: 36415; 80053; 81001; 84443; 85025; 87086; 99283

== ENCOUNTER → 2023-10-24 13:42 | Outpatient (CLI) | payer MEDICARE, SELFPAY ==
[2023-06-29 08:45] VITALS: BMI 24.3
--- NOTE | 2023-10-24 13:44 | DI.CT.S_ITS ---
PROCEDURE: CT HEAD/BRAIN WO CON INDICATIONS: Parkinson's disease without dyskinesia, with fluct TECHNIQUE: Noncontrast 4.5 mm thick angled axial sections acquired from the foramen magnum to the vertex, with coronal and sagittal reformats. For radiation dose reduction, the following was used: automated exposure control, adjustment of mA and/or kV according to patient size. COMPARISON: [facility], CT, CT HEAD/BRAIN WO CON, 07/07/2022, 8:38. FINDINGS: Image quality: Diagnostic. CSF spaces: Basal cisterns are patent. No extra-axial fluid collections. Ventricles are normal in size and shape. Brain: No midline shift. No intracranial masses or hemorrhage. Silva-white matter interface is normal. Skull and face: Calvarium and visualized facial bones are intact, without suspicious lesions. Sinuses: Visualized sinuses and mastoids are clear. IMPRESSION: Atrophy and marked chronic ischemic change, stable from prior Approved by: Jose Chery M.D. on 10/24/2023 at 15:48
== END ==
PROVIDERS: PCP Family Medicine; Referring Provider Psychiatry & Neurology Neurology; Visit Provider Psychiatry & Neurology Neurology
DX: G20.A2 Parkinson's disease without dyskinesia, with fluctuations
CPT/HCPCS: 70450

== ENCOUNTER → 2024-02-07 09:38 | Outpatient (CLI) | payer MEDICARE, SELFPAY ==
[2023-06-29 08:45] VITALS: BMI 24.3
[2024-02-07 10:48] LABS: Add Manual Diff / Slide Review NO; Basophils Absolute Auto 100 /uL (0-100); Basophils Percent Auto 1.3 % (0-2); Eosinophils Absolute Auto 400 /uL (0-450); Eosinophils Percent Auto 8.9 % (2-4); Hematocrit 31.2 % (36-46); Lymphocytes Absolute Auto 1300 /uL (1100-4500); Lymphocytes Percent Auto 26.8 % (25-40); Mean Corpuscular HGB Conc 35.4 % (30-36); Mean Corpuscular Hemoglobin 32.6 PG (26-34); Mean Corpuscular Volume 92.1 fL (80-100); Monocytes Absolute Auto 400 /uL (0-900); Neutrophils Absolute Auto 2700 /uL (1500-7000); Platelet Count 186 X10^3/uL (150-400); Red Blood Cell Count 3.38 X10^6/uL (4.0-5.2); Red Cell Distribution Width 12.6 % (11.6-14.8)
[2024-02-07 11:08] LABS: Alanine Aminotransferase 5 IU/L (<35); Albumin Globulin Ratio 1.5 (1.0-2.8); Alkaline Phosphatase 37 U/L (38-126); Aspartate Aminotransferase 24 IU/L (14-36); BUN Creatinine Ratio 19.7 (6-22); Bilirubin Total 1.2 mg/dL (0.2-1.3); Blood Urea Nitrogen 12 mg/dL (7-17); Carbon Dioxide 25 mmol/L (22-32); Chloride 109 mmol/L (98-107); Estimated Glomerular Filt Rate > 60 mL/min (>60); Globulin 2.6 g/dL (1.7-4.1); Glucose 98 mg/dL (80-110); HEMOLYSIS < 15 (0-50); Potassium 4.1 mmol/L (3.4-5.1); Sodium 138 mmol/L (137-145); Total Protein 6.6 g/dL (6.3-8.2)
== END ==
PROVIDERS: PCP Family Medicine; Referring Provider Family Medicine; Visit Provider Family Medicine
DX: G20.B2 Parkinson's disease with dyskinesia, with fluctuations (principal); R68.89 Other general symptoms and signs; R53.83 Other fatigue
CPT/HCPCS: 36415; 80053; 85025

== ENCOUNTER → 2024-08-24 11:51 | Outpatient (CLI) | payer MEDICARE, SELFPAY ==
[2023-06-29 08:45] VITALS: BMI 24.3
[2024-08-24 12:49] LABS: Influenza A - CEPHEID Flu A NEGATIVE (NEGATIVE); Influenza B - CEPHEID Flu B NEGATIVE (NEGATIVE); Respiratory Syncytial Virus Negative (Negative)
[2024-08-24 12:54] LABS: COVID-19 CEPHEID 4-PLEX PCR Negative (Negative)
== END ==
PROVIDERS: PCP Family Medicine; Visit Provider Nurse Practitioner Family
DX: J02.9 Acute pharyngitis, unspecified (principal)
CPT/HCPCS: 0241U; 87070

== ENCOUNTER 2024-12-12 08:40 | Emergency (ER) | payer MEDICARE, SELFPAY ==
[2023-06-29 08:45] VITALS: BMI 24.3
[2024-12-12 09:05] VITALS: PULSE 80; O2SAT 97
[2024-12-12 09:06] VITALS: BP 147/77; PULSE 86; RESP 16; TEMP 36.7; O2SAT 99; BMI 18.6
[2024-12-12 09:30] VITALS: PULSE 74; RESP 28; O2SAT 97
[2024-12-12 09:35] LABS: Appearance Urine UA CLOUDY; Bilirubin Urine UA NEGATIVE (NEGATIVE); Color Urine UA ORANGE; Glucose Urine UA NEGATIVE (Negative); Ketones Urine UA NEGATIVE (NEGATIVE); Leukocyte Esterase Urine UA 3+ (NEGATIVE); Nitrite Urine UA NEGATIVE (Negative); Occult Blood Urine UA 3+ (Negative); Protein Urine UA 2+ (Negative); Specific Gravity Urine UA 1.015 (1.000-1.035); Urobilinogen Urine UA 0.2 E.U./dL (0.2)
[2024-12-12 09:43] LABS: Bacteria Urine Few (2-10); RBC Urine 10-30/HPF (0-5/HPF); Squamous Epithelial Cell Urine 1-5 /HPF (0-5/HPF); Urine Volume 10mL (spun); WBC Urine 30-100/HPF (0-5/HPF); pH Urine UA 7.5 (4.5-8.0)
[2024-12-12 09:44] LABS: Culture Indicated Urine Specimen Cultured
[2024-12-12 10:00] VITALS: PULSE 69; RESP 18; O2SAT 96
--- NOTE | 2024-12-12 10:00 | ED_ITS ---
HPI - Female Genitourinary General Chief complaint: Urogenital-Female Stated complaint: bladder infection, parkinsons Time Seen by Provider: 12/12/24 09:22 Source: patient and family Mode of arrival: Ambulatory History of Present Illness HPI Narrative: 79-year-old female with history of parkinsonism, has 3 days duration of painful and frequent urination. Some bloody appearance in urine. No fevers or chills. No nausea or vomiting. No back pain symptoms. Also does not seem to have suprapubic or other anterior abdominal discomfort at this time. Not currently on any antibiotics. She has some loose stools, sometimes firm, uses MiraLax periodically, no change in stool pattern. No black or red or mucoid stools. Denies cough chest pain shortness of breath. No history of known kidney stones. Related Data Home Medications Medication Instructions Recorded Confirmed acetaminophen 500 mg tablet 500 mg PO Q6H PRN 06/27/23 11/26/24 (Tylenol Extra Strength) [id number] 8 mg-folic 400 1 tab PO DAILY 06/27/23 11/26/24 mcg-K 50 mcg-lutein 300 mcg tablet (Centrum Silver Women) polyethylene glycol 3350 17 17 g PO DAILY 06/27/23 11/26/24 gram/dose oral powder (Miralax) sennosides 8.6 mg capsule (senna) 8.6 mg PO DAILY 06/27/23 11/26/24 carbidopa 25 mg-levodopa 100 mg 0.5 tab PO 5XD 07/24/23 11/26/24 tablet pimavanserin 34 mg capsule 34 mg PO DAILY 02/08/24 11/26/24 (Nuplazid) Lactobacillus combo no.23 14 cell PO 05/30/24 11/26/24 billion cell capsule (Mark Probiotic) carbidopa ER 50 mg-levodopa 200 mg 1 tab PO 6XD 05/30/24 11/26/24 tablet,extended release estradiol 10 mcg vaginal tablet 10 mcg vaginal 2XW 05/30/24 11/26/24 gabapentin 400 mg capsule 400 mg PO BID PRN 05/30/24 11/26/24 magnesium citrate 125 mg capsule 125 mg PO DAILY 05/30/24 11/26/24 amantadine HCl 100 mg tablet 100 mg PO DAILY 11/19/24 11/26/24 quetiapine 25 mg tablet 12.5 mg PO DAILY 11/19/24 11/26/24 Previous Rx's Medication Instructions Recorded pravastatin 10 mg tablet 10 mg PO DAILY #90 tabs 11/04/24 cephalexin 500 mg capsule 500 mg PO QID 7 days #28 caps 12/12/24 phenazopyridine 200 mg tablet 200 mg PO TID PRN pain #10 tabs 12/12/24 (Pyridium) Allergies Allergy/AdvReac Type Severity Reaction Status Date / Time benzoyl peroxide Allergy Severe FACIAL Verified 11/26/24 16:40 SWELLING Sulfa (Sulfonamide Allergy Severe SWELLING, Verified 11/26/24 16:40 Antibiotics) HIVES lanolin AdvReac Mild Rash Verified 11/26/24 16:40 Patient History Medical History (Updated 12/12/24 @ 10:13 by Edgar Dailey MD) Olecranon bursitis of right elbow (~05/2024) Contracture of palmar fascia Fever Osteopenia Measles Hemorrhoid Liver laceration Rectocele Vaginal vault prolapse Osteoarthritis Hx of flexible sigmoidoscopy (12/03/18) Benign colonic polyp Insomnia Coccidioidomycosis (~09/2003) Surgical History Anesthesia H/O cervical spine surgery (~07/07/22) History of repair of rectocele (~12/22/21) H/O arthroscopic knee surgery S/P SABRA-BSO (total abdominal hysterectomy and bilateral salpingo-oophorectomy) History of Family History Mother Hypertension Gallstones Heart disease Father Hypertension Heart disease Grandmother Diabetes mellitus Grandmother Stroke Brother Heart disease Cancer Brother Thrombocytosis Exam Narrative Exam Narrative: GENERAL: Well-developed patient, in mild distress. HEAD: Atraumatic. Normocephalic. EYES: Pupils equal round and reactive. Extraocular motions intact. No scleral icterus. No injection or drainage. ENT: Nose without bleeding, purulent drainage. Throat without erythema, tonsillar hypertrophy or exudate. Airway patent. NECK: Trachea midline. Non tender CARDIOVASCULAR: Regular rate and rhythm without murmurs, gallops, or rubs. RESPIRATORY: Clear to auscultation. Breath sounds equal bilaterally. No wheezes, rales, or rhonchi. GASTROINTESTINAL: Abdomen soft, non-tender, nondistended. EXTREMITIES: No edema or joint tenderness. BACK: Nontender without deformity or crepitance. No flank tenderness. NEURO: AOx3. Motor functions grossly nonfocal SKIN: No rash or erythema of visible areas Initial Vital Signs Initial Vital Signs: Vital Signs Pulse Rate 80 12/12/24 09:05 Pulse Oximetry 97 12/12/24 09:05 Course Orders Ordered: Discontinued Medications Cephalexin HCl (Cephalexin 250 Mg Capsule) 500 mg PO NOW ONE Stop: 12/12/24 10:07 Last Admin: 12/12/24 10:12 Dose: 500 mg Documented By: JACQUE Ondansetron HCl (Ondansetron 4 Mg/2 Ml Inj) 4 mg IV NOW PRN PRN Reason: Nausea And Vomiting Ondansetron HCl (Ondansetron 4 Mg Odt) 4 mg PO NOW PRN PRN Reason: Nausea And Vomiting Phenazopyridine HCl (Phenazopyridine 100 Mg Tablet) 200 mg PO NOW ONE Stop: 12/12/24 10:07 Last Admin: 12/12/24 10:12 Dose: 200 mg Documented By: JACQUE Vital Signs Vital signs: Vital Signs - 8 hr 12/12/24 09:06 Temperature 98.0 F Pulse Rate 86 Respiratory Rate 16 Blood Pressure 147/77 H Pulse Oximetry 99 Oxygen Delivery Method Room Air MDM - Female Genitourinary Lab Data Attestation: I reviewed the patient's lab results. Lab results narrative: Urinalysis suspicious for infection, urine cultured by protocol. Labs: Lab Results 12/12/24 Range/Units 09:21 Urine Color [place] Urine Appearance Cloudy Urine pH 7.5 (4.5-8.0) Ur Specific [place] 1.015 (1.000-1.035) Urine Protein 2+ H (Negative) Urine Glucose (UA) Negative (Negative) g/dL Urine Ketones Negative (NEGATIVE) Urine Occult Blood 3+ H (Negative) Urine Nitrate Negative (Negative) Urine Bilirubin Negative (NEGATIVE) Urine Urobilinogen 0.2 (0.2) E.U./dL Ur Leukocyte Esterase 3+ H (NEGATIVE) Urine RBC 10-30/hpf H (0-5/HPF) Urine WBC 30-100/hpf H (0-5/HPF) Ur Squamous Epith Cells 1-5 /hpf (0-5/HPF) Urine Bacteria Few (2-10) H (None) Ur Culture Indicated? Specimen cultured Vol Urine Centrifuged 10ml (spun) MDM Narrative Medical decision making narrative: 79-year-old female with history of parkinsonism with dysuria and frequency of urination, afebrile, sirs screen negative. No abdominal ventral tenderness. No back pain. Urinalysis suspicious for infection, clinically suspect cystitis. Doubt upper tract pyelonephritis at this time. Not currently on antibiotics. NKDA. First dose oral cephalexin now, we will send prescription for further course antibiotics to her pharmacy. Also Pyridium now, prescription to her pharmacy. Encouraged oral hydration. Discharged home with family. Return precautions discussed. Discharge Plan Departure Patient Disposition: Home Clinical Impression: Urinary tract infection Activity Restrictions/Additional Instructions: Painful frequent urination with gross hematuria bloody appearance of the urine. Urinalysis suspicious for infection. No fever on triage. First dose of oral antibiotic cephalexin given, prescription for further antibiotics sent to pharmacy. First dose of oral Pyridium to take away the burning sensation given, prescription for further doses sent to pharmacy. Encouraged oral fluids h ydration. Continue taking your chronic regular medications. Take antibiotics as described for full course. Recheck with your regular doctor if not improving in the next couple of days. Recheck with your regular doctor and of course of antibiotics to consider repeat urinalysis to make sure everything has cleared up. Return earlier to this/nearest emergency department for any change worsening symptoms or any concerns prior. Prescriptions: New cephalexin 500 mg capsule 500 mg PO QID 7 Days Qty: 28 0RF phenazopyridine [Pyridium] 200 mg tablet 200 mg PO TID PRN (Reason: pain) Qty: 10 0RF No Action pravastatin 10 mg tablet 10 mg PO DAILY Qty: 90 0RF Centrum Silver Women 8 mg iron-400 mcg-50 mcg tablet 1 tab PO DAILY senna 8.6 mg capsule 8.6 mg PO DAILY polyethylene glycol 3350 [Miralax] 17 gram/dose powder 17 g PO DAILY acetaminophen [Tylenol Extra Strength] 500 mg tablet 500 mg PO Q6H PRN carbidopa-levodopa 50-200 mg tablet extended release 1 tab PO 6XD Patient Comments: DECREASING, SWITCHING TO RYTARY gabapentin 400 mg capsule 400 mg PO BID PRN carbidopa-levodopa 25-100 mg tablet 0.5 tab PO 5XD Patient Comments: taking 1/2 tab w/ carbidopa-levodopa 50mg/200mg XR per neuro recommendation Nuplazid 34 mg capsule 34 mg PO DAILY estradiol 10 mcg tablet 10 mcg vaginal 2XW magnesium citrate 125 mg capsule 125 mg PO DAILY Mark Probiotic 14 billion cell capsule PO quetiapine 25 mg tablet 12.5 mg PO DAILY amantadine HCl 100 mg tablet 100 mg PO DAILY Referrals: Sushma Morris DO [Primary Care Provider] - Stand Alone Forms: Patient Portal/API/Survey
[2024-12-12] MEDS: PHENAZOPYRIDINE 100 MG TABLET 200 MG PO (10:12)
[2024-12-12] MEDS: cephALEXin 250 MG CAPSULE 500 MG PO (10:12)
[2024-12-12 10:31] VITALS: BP 111/56; PULSE 65; RESP 17; O2SAT 96
== END 2024-12-12 10:32 | disposition home or self-care (01) ==
PROVIDERS: Emergency Provider Emergency Medicine; PCP Family Medicine
DX: N39.0 Urinary tract infection, site not specified (principal)
CPT/HCPCS: 81001; 87086; 99283

== ENCOUNTER 2024-12-19 11:38 | Emergency (ER) | payer MEDICARE, SELFPAY ==
[2023-06-29 08:45] VITALS: BMI 24.3
[2024-12-19 12:01] VITALS: PULSE 95; RESP 18; TEMP 36.6; O2SAT 97
[2024-12-19 12:46] LABS: Add Manual Diff / Slide Review NO; Basophils Absolute Auto 100 /uL (0-100); Eosinophils Absolute Auto 100 /uL (0-450); Eosinophils Percent Auto 1.1 % (2-4); Hematocrit 32.7 % (36-46); Hemoglobin 11.5 g/dL (12.0-16.0); Lymphocytes Absolute Auto 1400 /uL (1100-4500); Mean Corpuscular HGB Conc 35.2 % (30-36); Mean Corpuscular Hemoglobin 31.9 PG (26-34); Mean Corpuscular Volume 90.6 fL (80-100); Monocytes Absolute Auto 600 /uL (0-900); Monocytes Percent Auto 10.6 % (3-14); Neutrophils Absolute Auto 3500 /uL (1500-7000); Neutrophils Percent Auto 62.3 % (50-75); Platelet Count 229 X10^3/uL (150-400); Red Blood Cell Count 3.61 X10^6/uL (4.0-5.2); Red Cell Distribution Width 12.5 % (11.6-14.8); White Blood Cell Count 5.6 X10^3/uL (4.5-11.0)
[2024-12-19 13:03] LABS: Acetaminophen < 10 ug/mL (10-30); Alanine Aminotransferase 9 IU/L (<35); Albumin 4.5 g/dL (3.5-5.0); Albumin Globulin Ratio 1.6 (1.0-2.8); Alkaline Phosphatase 61 U/L (38-126); Aspartate Aminotransferase 33 IU/L (14-36); BUN Creatinine Ratio 20.5 (6-22); Bilirubin Total 1.2 mg/dL (0.2-1.3); Blood Urea Nitrogen 16 mg/dL (7-17); Calcium 9.4 mg/dL (8.4-10.2); Carbon Dioxide 24 mmol/L (22-32); Chloride 105 mmol/L (98-107); Estimated Glomerular Filt Rate > 60 mL/min (>60); Ethanol (ETOH) < 10 mg/dL (<10); Globulin 2.9 g/dL (1.7-4.1); Glucose 105 mg/dL (70-99); HEMOLYSIS < 15 (0-50); Potassium 4.3 mmol/L (3.4-5.1); Salicylate < 1.0 mg/dL (<20); Sodium 138 mmol/L (137-145); Total Protein 7.4 g/dL (6.3-8.2)
[2024-12-19 13:34] LABS: TSH w/ Reflex to FT4 0.36 uIU/mL (0.47-4.68)
--- NOTE | 2024-12-19 14:57 | ED.PSYCH ---
HPI - Psych <Maddy Brunner MD - Last Filed: 12/22/24 09:22> General Chief Complaint: Psychiatric Symptoms Stated Complaint: mental health- sleep deprived Time Seen by Provider: 12/19/24 12:20 Source: patient, family and EMS Mode of arrival: Ambulatory History of Present Illness HPI Narrative: 79-year-old female history of Parkinson's disease, urinary tract infection, follows with Neurology Dr. Hightower, here with her for evaluation of several weeks of hallucinations. Per who provides history, patient has had worsening hallucinations, this morning thought that people were trying to cut her feet off and boil her dog and hot oil. She had gone missing for a short time and he was worried that she had wandered off. He reports that he has called EMS 3 times this week in regards to these hallucinations, was recently diagnosed with bladder infection and prescribed antibiotic which she completed. Unfortunately hallucinations have not improved. Furthermore, neurologist had prescribed amantadine for hallucinations which also did not help. More recently, has been using Seroquel at night to help her sleep but have not improved hallucinations. relates has sought out placement for his into assisted living as well as has consulted hospice and palliative care. He is working on these arrangements although pat relates that she is against this. Deny any recent vomiting diarrhea, respiratory illness. No other complaints or concerns today Related Data Home Medications ?Medication ?Instructions ?Recorded ?Confirmed acetaminophen 500 mg tablet 500 mg PO Q6H PRN 06/27/23 12/18/24 (Tylenol Extra Strength) alyuvskj-nohu-uivo 8 mg-folic 400 1 tab PO DAILY 06/27/23 12/18/24 mcg-K 50 mcg-lutein 300 mcg tablet (Centrum Silver Women) polyethylene glycol 3350 17 17 g PO DAILY 06/27/23 12/18/24 gram/dose oral powder (Miralax) sennosides 8.6 mg capsule (senna) 8.6 mg PO DAILY 06/27/23 12/18/24 carbidopa 25 mg-levodopa 100 mg 0.5 tab PO 5XD 07/24/23 12/18/24 tablet pimavanserin 34 mg capsule 34 mg PO DAILY 02/08/24 12/18/24 (Nuplazid) Lactobacillus combo no.23 14 cell PO 05/30/24 12/18/24 billion cell capsule (Mark Probiotic) carbidopa ER 50 mg-levodopa 200 mg 1 tab PO 6XD 05/30/24 12/18/24 tablet,extended release estradiol 10 mcg vaginal tablet 10 mcg vaginal 2XW 05/30/24 12/18/24 gabapentin 400 mg capsule 400 mg PO BID PRN 05/30/24 12/18/24 magnesium citrate 125 mg capsule 125 mg PO DAILY 05/30/24 12/18/24 quetiapine 25 mg tablet 12.5 mg PO DAILY 11/19/24 12/18/24 Previous Rx's ?Medication ?Instructions ?Recorded pravastatin 10 mg tablet 10 mg PO DAILY #90 tabs 11/04/24 phenazopyridine 200 mg tablet 200 mg PO TID PRN pain #10 tabs 12/12/24 (Pyridium) Allergies Allergy/AdvReac Type Severity Reaction Status Date / Time benzoyl peroxide Allergy Severe FACIAL Verified 12/18/24 11:38 SWELLING Sulfa (Sulfonamide Allergy Severe SWELLING, Verified 12/18/24 11:38 Antibiotics) HIVES lanolin AdvReac Mild Rash Verified 12/18/24 11:38 <Helena Braga DO - Last Filed: 12/24/24 18:06> History of Present Illness HPI Narrative: 79-year-old female history of Parkinson's disease, urinary tract infection, follows with Neurology Dr. Hightower, here with her for evaluation of several weeks of hallucinations. Per who provides history, patient has had worsening hallucinations, this morning thought that people were trying to cut her feet off and boil her dog and hot oil. She had gone missing for a short time and he was worried that she had wandered off. He reports that he has called EMS 3 times this week in regards to these hallucinations, was recently diagnosed with bladder infection and prescribed antibiotic which she completed. Unfortunately hallucinations have not improved. Furthermore, neurologist had prescribed amantadine for hallucinations which also did not help. More recently, has been using Seroquel at night to help her sleep but have not improved hallucinations. relates has sought out placement for his into assisted living as well as has consulted hospice and palliative care. He is working on these arrangements although pat relates that she is against this. Deny any recent vomiting diarrhea, respiratory illness. No other complaints or concerns today. Review of Systems <Maddy Brunner MD - Last Filed: 12/22/24 09:22> Review of Systems Narrative: Difficult to obtain as patient is a poor historian Patient History <Maddy Brunner MD - Last Filed: 12/22/24 09:22> Medical History (Updated 12/20/24 @ 19:29 by Maddy Brunner MD) Olecranon bursitis of right elbow (~05/2024) Contracture of palmar fascia Fever Osteopenia Measles Hemorrhoid Liver laceration Rectocele Vaginal vault prolapse Osteoarthritis Hx of flexible sigmoidoscopy (12/03/18) Benign colonic polyp Insomnia Coccidioidomycosis (~09/2003) Surgical History Anesthesia H/O cervical spine surgery (~07/07/22) History of repair of rectocele (~12/22/21) H/O arthroscopic knee surgery S/P SABRA-BSO (total abdominal hysterectomy and bilateral salpingo-oophorectomy) History of Family History Mother Hypertension Gallstones Heart disease Father Hypertension Heart disease Grandmother Diabetes mellitus Grandmother Stroke Brother Heart disease Cancer Brother Thrombocytosis Social History household members: spouse second hand exposure: No alcohol intake: former substance use type: does not use alcohol intake frequency: holidays/special occasions only Exam <Maddy Brunner MD - Last Filed: 12/22/24 09:22> Initial Vital Signs Initial Vital Signs: Vital Signs Temperature 98 F 12/19/24 12:01 Pulse Rate 95 H 12/19/24 12:01 Respiratory Rate 18 12/19/24 12:01 Pulse Oximetry 97 12/19/24 12:01 Oxygen Delivery Method Room Air 12/19/24 12:01 Constitutional: 79-year-old female resting in the bed, restless, severe akathisia Head: NCAT Cardiovascular: Normal rate Pulmonary: Normal effort Extremities: No LE edema Skin: warm and dry, no diaphoresis Neurological: Alert and oriented x3. Tangential speech. Paranoid delusions. Rambles about state of [place] politics and others that are trying to harm her dog <Helena Braga DO - Last Filed: 12/24/24 18:06> Initial Vital Signs Initial Vital Signs: Vital Signs Temperature 98 F 12/19/24 12:01 Pulse Rate 95 H 12/19/24 12:01 Respiratory Rate 18 12/19/24 12:01 Pulse Oximetry 97 12/19/24 12:01 Oxygen Delivery Method Room Air 12/19/24 12:01 Course <Maddy Brunner MD - Last Filed: 12/22/24 09:22> Orders Ordered: Discontinued Medications Carbidopa/Levodopa (Carbidopa-Levodopa 25/100 Tablet) 0.5 each PO 0800,1100,1400,1700,2000 [facility] Last Admin: 12/20/24 17:43 Dose: 0.5 each Documented By: Admin: 12/20/24 14:23 Dose: 0.5 each Documented By: Admin: 12/20/24 11:32 Dose: 0.5 each Documented By: GEMMA Carbidopa/Levodopa (Carbidopa-Levodopa Er 50/200 Tablet) 1 each PO 0800,1100,1400,1700,2000 [facility] Last Admin: 12/20/24 17:43 Dose: 1 each Documented By: Admin: 12/20/24 14:23 Dose: 1 each Documented By: Admin: 12/20/24 11:32 Dose: 1 each Documented By: GEMMA Gabapentin (Gabapentin 100 Mg Capsule) 400 mg PO BID [facility] Last Admin: 12/20/24 10:32 Dose: Not Given Documented By: GEMMA Gabapentin (Gabapentin 400 Mg Capsule) 400 mg PO BID [facility] Last Admin: 12/20/24 10:27 Dose: 400 mg Documented By: GEMMA Lorazepam (Lorazepam 2 Mg/Ml Inj) 1 mg IM NOW ONE Stop: 12/19/24 19:45 Last Admin: 12/19/24 20:25 Dose: Not Given Documented By: FREYA Lorazepam (Lorazepam 0.5 Mg Tablet) 2 mg PO NOW ONE Stop: 12/19/24 20:32 Last Admin: 12/19/24 21:58 Dose: 2 mg Documented By: FREYA Lorazepam (Lorazepam 0.5 Mg Tablet) 1 mg PO NOW ONE Stop: 12/20/24 14:04 Last Admin: 12/20/24 14:22 Dose: 1 mg Documented By: Lorazepam (Lorazepam 0.5 Mg Tablet) 1 mg PO NOW ONE Stop: 12/20/24 18:01 Last Admin: 12/20/24 18:48 Dose: 1 mg Documented By: GEMMA Nitrofurantoin Macrocrystals (Nitrofurantoin Er 100 Mg Capsule) 100 mg PO BID [facility] Nitrofurantoin Macrocrystals (Nitrofurantoin Er 100 Mg Capsule) 100 mg PO BID [facility] Last Admin: 12/20/24 09:17 Dose: 100 mg Documented By: Admin: 12/19/24 21:57 Dose: 100 mg Documented By: FREYA Non-Formulary Medication (Nuplazid) 34 mg PO DAILY@1400 [facility] Last Admin: 12/20/24 14:23 Dose: 34 mg Documented By: Non-Formulary Medication (Home Med) 0 mg PO 5XD [facility] Last Admin: 12/20/24 10:33 Dose: Not Given Documented By: GEMMA Olanzapine (Olanzapine 10 Mg Vial) 5 mg IM NOW ONE Stop: 12/19/24 18:31 Last Admin: 12/19/24 18:49 Dose: 5 mg Documented By: GAMALIEL Olanzapine (Olanzapine 10 Mg Vial) 5 mg IM NOW ONE Stop: 12/19/24 19:45 Last Admin: 12/19/24 20:00 Dose: 5 mg Documented By: ESTRELLA Polyethylene Glycol (Polyethylene Glycol 3350 17 Gm Powd.Pack) 17 gm PO BID [facility] Last Admin: 12/20/24 10:27 Dose: Not Given Documented By: GEMMA Pravastatin Sodium (Pravastatin 20 Mg Tablet) 10 mg PO DAILY [facility] Last Admin: 12/20/24 10:27 Dose: 10 mg Documented By: GEMMA Quetiapine Fumarate (Quetiapine 100 Mg Tablet) 25 mg PO BEDTIME [facility] Quetiapine Fumarate (Quetiapine 100 Mg Tablet) 25 mg PO BEDTIME [facility] Quetiapine Fumarate (Quetiapine 100 Mg Tablet) 25 mg PO BEDTIME [facility] Quetiapine Fumarate (Quetiapine 100 Mg Tablet) 25 mg PO NOW ONE Stop: 12/20/24 18:44 Last Admin: 12/20/24 18:47 Dose: 25 mg Documented By: GEMMA Vital Signs Vital signs: Vital Signs - 8 hr 12/20/24 14:45 12/20/24 18:20 12/20/24 18:57 Pulse Rate 80 73 Respiratory Rate 16 13 Blood Pressure 105/66 97/55 L Pulse Oximetry 95 98 Oxygen Delivery Method Room Air Room Air Room Air <Helena Braga, DO - Last Filed: 12/24/24 18:06> Orders Ordered: Discontinued Medications Carbidopa/Levodopa (Carbidopa-Levodopa 25/100 Tablet) 0.5 each PO 0800,1100,1400,1700,2000 [facility] Last Admin: 12/20/24 17:43 Dose: 0.5 each Documented By: Admin: 12/20/24 14:23 Dose: 0.5 each Documented By: Admin: 12/20/24 11:32 Dose: 0.5 each Documented By: GEMMA Carbidopa/Levodopa (Carbidopa-Levodopa Er 50/200 Tablet) 1 each PO 0800,1100,1400,1700,2000 [facility] Last Admin: 12/20/24 17:43 Dose: 1 each Documented By: Admin: 12/20/24 14:23 Dose: 1 each Documented By: Admin: 12/20/24 11:32 Dose: 1 each Documented By: GEMMA Gabapentin (Gabapentin 100 Mg Capsule) 400 mg PO BID [facility] Last Admin: 12/20/24 10:32 Dose: Not Given Documented By: GEMMA Gabapentin (Gabapentin 400 Mg Capsule) 400 mg PO BID [facility] Last Admin: 12/20/24 10:27 Dose: 400 mg Documented By: GEMMA Lorazepam (Lorazepam 2 Mg/Ml Inj) 1 mg IM NOW ONE Stop: 12/19/24 19:45 Last Admin: 12/19/24 20:25 Dose: Not Given Documented By: FREYA Lorazepam (Lorazepam 0.5 Mg Tablet) 2 mg PO NOW ONE Stop: 12/19/24 20:32 Last Admin: 12/19/24 21:58 Dose: 2 mg Documented By: FREYA Lorazepam (Lorazepam 0.5 Mg Tablet) 1 mg PO NOW ONE Stop: 12/20/24 14:04 Last Admin: 12/20/24 14:22 Dose: 1 mg Documented By: Lorazepam (Lorazepam 0.5 Mg Tablet) 1 mg PO NOW ONE Stop: 12/20/24 18:01 Last Admin: 12/20/24 18:48 Dose: 1 mg Documented By: GEMMA Nitrofurantoin Macrocrystals (Nitrofurantoin Er 100 Mg Capsule) 100 mg PO BID [facility] Nitrofurantoin Macrocrystals (Nitrofurantoin Er 100 Mg Capsule) 100 mg PO BID [facility] Last Admin: 12/20/24 09:17 Dose: 100 mg Documented By: Admin: 12/19/24 21:57 Dose: 100 mg Documented By: FREYA Non-Formulary Medication (Nuplazid) 34 mg PO DAILY@1400 [facility] Last Admin: 12/20/24 14:23 Dose: 34 mg Documented By: Non-Formulary Medication (Home Med) 0 mg PO 5XD [facility] Last Admin: 12/20/24 10:33 Dose: Not Given Documented By: GEMMA Olanzapine (Olanzapine 10 Mg Vial) 5 mg IM NOW ONE Stop: 12/19/24 18:31 Last Admin: 12/19/24 18:49 Dose: 5 mg Documented By: GAMALIEL Olanzapine (Olanzapine 10 Mg Vial) 5 mg IM NOW ONE Stop: 12/19/24 19:45 Last Admin: 12/19/24 20:00 Dose: 5 mg Documented By: ESTRELLA Polyethylene Glycol (Polyethylene Glycol 3350 17 Gm Powd.Pack) 17 gm PO BID [facility] Last Admin: 12/20/24 10:27 Dose: Not Given Documented By: GEMMA Pravastatin Sodium (Pravastatin 20 Mg Tablet) 10 mg PO DAILY [facility] Last Admin: 12/20/24 10:27 Dose: 10 mg Documented By: GEMMA Quetiapine Fumarate (Quetiapine 100 Mg Tablet) 25 mg PO BEDTIME [facility] Quetiapine Fumarate (Quetiapine 100 Mg Tablet) 25 mg PO BEDTIME [facility] Quetiapine Fumarate (Quetiapine 100 Mg Tablet) 25 mg PO BEDTIME [facility] Quetiapine Fumarate (Quetiapine 100 Mg Tablet) 25 mg PO NOW ONE Stop: 12/20/24 18:44 Last Admin: 12/20/24 18:47 Dose: 25 mg Documented By: GEMMA Vital Signs Vital signs: Vital Signs - 8 hr 12/20/24 14:45 12/20/24 18:20 12/20/24 18:57 Pulse Rate 80 73 Respiratory Rate 16 13 Blood Pressure 105/66 97/55 L Pulse Oximetry 95 98 Oxygen Delivery Method Room Air Room Air Room Air MDM - Psych <Maddy Brunner MD - Last Filed: 12/22/24 09:22> Lab Data 12/19/24 12:35 12/19/24 12:35 Labs: Lab Results 12/19/24 12/19/24 12/20/24 Range/Units 12:35 16:20 11:38 WBC 5.6 (4.5-11.0) X10^3/uL RBC 3.61 L (4.0-5.2) X10^6/uL Hgb 11.5 L (12.0-16.0) g/dL Hct 32.7 L (36-46) % MCV 90.6 (80-100) fL MCH 31.9 (26-34) PG MCHC 35.2 (30-36) % RDW 12.5 (11.6-14.8) % Plt Count 229 (150-400) X10^3/uL Neut % (Auto) 62.3 (50-75) % Lymph % (Auto) 25.0 (25-40) % Greenlee % (Auto) 10.6 (3-14) % Eos % (Auto) 1.1 L (2-4) % Baso % (Auto) 1.0 (0-2) % Neut # (Auto) 3500 (0364-8599) /uL Lymph # (Auto) 1400 (5313-8129) /uL Greenlee # (Auto) 600 (0-900) /uL Eos # (Auto) 100 (0-450) /uL Baso # (Auto) 100 (0-100) /uL Sodium 138 (137-145) mmol/L Potassium 4.3 (3.4-5.1) mmol/L Chloride 105 (98-107) mmol/L Carbon Dioxide 24 (22-32) mmol/L BUN 16 (7-17) mg/dL Creatinine 0.78 (0.52-1.04) mg/dL Estimated GFR > 60 (>60) mL/min BUN/Creatinine Ratio 20.5 (6-22) Glucose 105 H (70-99) mg/dL Calcium 9.4 (8.4-10.2) mg/dL Total Bilirubin 1.2 (0.2-1.3) mg/dL AST 33 (14-36) IU/L ALT 9 (<35) IU/L Alkaline Phosphatase 61 (38-126) U/L Total Protein 7.4 (6.3-8.2) g/dL Albumin 4.5 (3.5-5.0) g/dL Globulin 2.9 (1.7-4.1) g/dL Albumin/Globulin Ratio 1.6 (1.0-2.8) TSH 0.36 L (0.47-4.68) uIU/mL Free T4 0.93 (0.78-2.19) ng/dL Ur Bilirubin Confirm Negative (Negative) Urine RBC None seen (0-5/HPF) Urine WBC 10-30/hpf H (0-5/HPF) Ur Squamous Epith Cells 1-5 /hpf (0-5/HPF) Ur Transition Epith Cell 0-1/hpf (0-5/HPF) Urine Bacteria Moderate (10-30) H (None) Ur Culture Indicated? Specimen cultured Vol Urine Centrifuged 10ml (spun) Salicylates < 1.0 (<20) mg/dL U Opiates 300ng/mL cut Negative (Negative) Ur Oxycodone Screen Negative (Negative) Urine Methadone Screen Negative (Negative) Acetaminophen < 10 (10-30) ug/mL Ur Barbiturates Screen Negative (Negative) U Tricyclic Antidepress Negative (Negative) Ur Phencyclidine Scrn Negative (Negative) Ur Amphetamines Screen Negative (Negative) U Methamphetamines Scrn Negative (Negative) Ur MDMA Scrn (Ecstasy) Negative (Negative) U Benzodiazepines Scrn Negative (Negative) Urine Cocaine Screen Negative (Negative) U Marijuana (THC) Screen Negative (Negative) Urine pH Normal (Normal) Urine Specific Stanton Normal (Normal) Ethyl Alcohol < 10 (<10) mg/dL Ur Creatinine Normal (Normal) SARS-CoV-2 (PCR) Negative (Negative) Urine Dip Bedside Urine Glucose 100 mg/dl Bedside Urine Bilirubin ++ 2 Bedside Urine Ketone +/- 5 Urine Specific Stanton 1.010 Bedside Urine Occult Blood - Negative Bedside Urine pH 8 Bedside Urine Protein - Negative Bedside Urine Urobilinogen 2+ 4mg Bedside Urine Nitrite - Negative Bedside Urine Leukocytes +++ 500 Esterase MDM Narrative Medical decision making narrative: 79-year-old female with history of Parkinson's disease and falls with Dr. Turcios of Neurology presents with her for evaluation of hallucinations for 2 weeks, worsening, despite trial of amantadine and more recently, seroquel (12.5mg qhs). Laboratories of note no leukocytosis, stable normocytic anemia. TSH low, free T4 pending. Urinalysis from 12/11 reviewed and does seem suggestive of urinary tract infection with RBCs WBCs and bacteria although prior recent urine culture did not grow any bacterial pathogens. Salicylate acetaminophen ethyl alcohol nonelevated We will reach out to neurology regarding med recs. Per she was recently prescribed Seroquel q.h.s., 12.5 mg. At this time it seems the is pushing for placement into higher level of care such as assisted living. We will involve addiction social worker regarding placement/possible geripsych evaluation Urinalysis is slightly positive for urinary tract infection. Until culture is resulted we will treat empirically with Macrobid For increased agitation as is preparing to leave, patient declining p.o. meds, we will give IM Zyprexa Patient will be signed out to oncoming provider pending observation overnight. Anticipate possible placement tomorrow 12/19/241954: Patient signed out to myself by Dr. Brunner, patient was seen evaluated by myself. Patient has been come increasingly agitated family preferred to leave and her dog had to leave with her . She was given IM Zyprexa has been come more agitated over times he was given additional IM dose of Zyprexa. Attempted oral benzodiazepine for agitation and hallucinations. Patient did attempt to elope and had to be redirected back to the room. DCR has been dispatched. She was medically cleared. Oral antibiotics has been ordered as well for a potential UTI. Patient was placed in seclusion. Patient met with MINA Ibrahim, at this time as a walk away, [facility] had beds but will not screen at nighttime all other facilities said no. Recommended to continue with social work. Consider in home care [facility]. Patient signed out to myself at change of shift this morning. Spoke with our neurologist group who recommend increase Seroquel dose to 25 mg q.h.s.. Could consider scheduled twice daily 25 mg if needed. Otherwise, recommend as needed benzo for agitation, avoid 1st generation antipsychotics No significant events while here in ED today. Patient is given PRN benzo for restlessness/agitation. Case management was able to arrange for patient to be transferred to outlying facility for geriatric psych evaluation. No growth on UA specimen provided - antibiotics can be discontinued upon discharge. <Helena Braga, - Last Filed: 12/24/24 18:06> Lab Data Labs: Lab Results 12/19/24 12/19/24 12/20/24 Range/Units 12:35 16:20 11:38 WBC 5.6 (4.5-11.0) X10^3/uL RBC 3.61 L (4.0-5.2) X10^6/uL Hgb 11.5 L (12.0-16.0) g/dL Hct 32.7 L (36-46) % MCV 90.6 (80-100) fL MCH 31.9 (26-34) PG MCHC 35.2 (30-36) % RDW 12.5 (11.6-14.8) % Plt Count 229 (150-400) X10^3/uL Neut % (Auto) 62.3 (50-75) % Lymph % (Auto) 25.0 (25-40) % Greenlee % (Auto) 10.6 (3-14) % Eos % (Auto) 1.1 L (2-4) % Baso % (Auto) 1.0 (0-2) % Neut # (Auto) 3500 (4829-1982) /uL Lymph # (Auto) 1400 (5156-6292) /uL Greenlee # (Auto) 600 (0-900) /uL Eos # (Auto) 100 (0-450) /uL Baso # (Auto) 100 (0-100) /uL Sodium 138 (137-145) mmol/L Potassium 4.3 (3.4-5.1) mmol/L Chloride 105 (98-107) mmol/L Carbon Dioxide 24 (22-32) mmol/L BUN 16 (7-17) mg/dL Creatinine 0.78 (0.52-1.04) mg/dL Estimated GFR > 60 (>60) mL/min BUN/Creatinine Ratio 20.5 (6-22) Glucose 105 H (70-99) mg/dL Calcium 9.4 (8.4-10.2) mg/dL Total Bilirubin 1.2 (0.2-1.3) mg/dL AST 33 (14-36) IU/L ALT 9 (<35) IU/L Alkaline Phosphatase 61 (38-126) U/L Total Protein 7.4 (6.3-8.2) g/dL Albumin 4.5 (3.5-5.0) g/dL Globulin 2.9 (1.7-4.1) g/dL Albumin/Globulin Ratio 1.6 (1.0-2.8) TSH 0.36 L (0.47-4.68) uIU/mL Free T4 0.93 (0.78-2.19) ng/dL Ur Bilirubin Confirm Negative (Negative) Urine RBC None seen (0-5/HPF) Urine WBC 10-30/hpf H (0-5/HPF) Ur Squamous Epith Cells 1-5 /hpf (0-5/HPF) Ur Transition Epith Cell 0-1/hpf (0-5/HPF) Urine Bacteria Moderate (10-30) H (None) Ur Culture Indicated? Specimen cultured Vol Urine Centrifuged 10ml (spun) Salicylates < 1.0 (<20) mg/dL U Opiates 300ng/mL cut Negative (Negative) Ur Oxycodone Screen Negative (Negative) Urine Methadone Screen Negative (Negative) Acetaminophen < 10 (10-30) ug/mL Ur Barbiturates Screen Negative (Negative) U Tricyclic Antidepress Negative (Negative) Ur Phencyclidine Scrn Negative (Negative) Ur Amphetamines Screen Negative (Negative) U Methamphetamines Scrn Negative (Negative) Ur MDMA Scrn (Ecstasy) Negative (Negative) U Benzodiazepines Scrn Negative (Negative) Urine Cocaine Screen Negative (Negative) U Marijuana (THC) Screen Negative (Negative) Urine pH Normal (Normal) Urine Specific Stanton Normal (Normal) Ethyl Alcohol < 10 (<10) mg/dL Ur Creatinine Normal (Normal) SARS-CoV-2 (PCR) Negative (Negative) Urine Dip Bedside Urine Glucose 100 mg/dl Bedside Urine Bilirubin ++ 2 Bedside Urine Ketone +/- 5 Urine Specific Stanton 1.010 Bedside Urine Occult Blood - Negative Bedside Urine pH 8 Bedside Urine Protein - Negative Bedside Urine Urobilinogen 2+ 4mg Bedside Urine Nitrite - Negative Bedside Urine Leukocytes +++ 500 Esterase MDM Narrative Medical decision making narrative: 79-year-old female with history of Parkinson's disease and falls with Dr. Turcios of Neurology presents with her for evaluation of hallucinations for 2 weeks, worsening, despite trial of amantadine and more recently, seroquel (12.5mg qhs). Laboratories of note no leukocytosis, stable normocytic anemia. TSH low, free T4 pending. Urinalysis from 12/11 reviewed and does seem suggestive of urinary tract infection with RBCs WBCs and bacteria although prior recent urine culture did not grow any bacterial pathogens. Salicylate acetaminophen ethyl alcohol nonelevated We will reach out to neurology regarding med recs. Per she was recently prescribed Seroquel q.h.s., 12.5 mg. At this time it seems the is pushing for placement into higher level of care such as assisted living. We will involve addiction social worker regarding placement/possible geripsych evaluation Urinalysis is slightly positive for urinary tract infection. Until culture is resulted we will treat empirically with Macrobid For increased agitation as is preparing to leave, patient declining p.o. meds, we will give IM Zyprexa Patient will be signed out to oncoming provider pending observation overnight. Anticipate possible placement tomorrow 12/19/241954: Dr. Braga. Patient signed out to myself by Dr. Brunner, patient was seen evaluated by myself. Patient has been come increasingly agitated family preferred to leave and her dog had to leave with her . She was given IM Zyprexa has been come more agitated over times he was given additional IM dose of Zyprexa. Attempted oral benzodiazepine for agitation and hallucinations. Patient did attempt to elope and had to be redirected back to the room. DCR has been dispatched. She was medically cleared. Oral antibiotics has been ordered as well for a potential UTI. Patient was placed in seclusion. Patient met with MINA Ibrahim, at this time as a walk away, [facility] had beds but will not screen at nighttime all other facilities said no. Recommended to continue with social work. Consider in home care [facility]. Patient is signed out to Dr. Brunner. Patient signed out to myself at change of shift this morning. Spoke with our neurologist group who recommend increase Seroquel dose to 25 mg q.h.s.. Could consider scheduled twice daily 25 mg if needed. Otherwise, recommend as needed benzo for agitation, avoid 1st generation antipsychotics No significant events while here in ED today. Patient is given PRN benzo for restlessness/agitation. Case management was able to arrange for patient to be transferred to outlying facility for geriatric psych evaluation. No growth on UA specimen provided - antibiotics can be discontinued upon discharge. Restraint Fmvn-hl-Grds <Helena Braga, DO - Last Filed: 12/24/24 18:06> Restraint Pxcj-ts-Kpoj Evaluation Wqal-fz-Dtnf #1: Date: 12/19/24 Time: 20:05 Patient Appearance: Disheveled Level of Consciousness: Alert Speech Pattern: Animated and Inappropriate Mood Description: Anxious Ability to Follow Directions: Poor Hallucination Type: Visual Thought Process: Disorganized Respirations: Normal respiratory rate Circulation: Moves all extremities and Skin warm and dry Behavior necessitating restraint: Agitated, Confusion, Dementia and Attempt to self harm (attempt to leave department.) Restraint risks explained to patient: Yes Reaction to Intervention: Agitated, Constant Movement Additional Comments: Restraints discontinued at 2118. Discharge Plan Departure Patient Disposition: Xfer Psychiatric Hosp Clinical Impression: Parkinson disease, Hallucinations Prescriptions: No Action pravastatin 10 mg tablet 10 mg PO DAILY Qty: 90 0RF Centrum Silver Women 8 mg iron-400 mcg-50 mcg tablet 1 tab PO DAILY senna 8.6 mg capsule 8.6 mg PO DAILY polyethylene glycol 3350 [Miralax] 17 gram/dose powder 17 g PO DAILY acetaminophen [Tylenol Extra Strength] 500 mg tablet 500 mg PO Q6H PRN carbidopa-levodopa 50-200 mg tablet extended release 1 tab PO 6XD Patient Comments: DECREASING, SWITCHING TO RYTARY gabapentin 400 mg capsule 400 mg PO BID PRN carbidopa-levodopa 25-100 mg tablet 0.5 tab PO 5XD Patient Comments: taking 1/2 tab w/ carbidopa-levodopa 50mg/200mg XR per neuro recommendation Nuplazid 34 mg capsule 34 mg PO DAILY estradiol 10 mcg tablet 10 mcg vaginal 2XW magnesium citrate 125 mg capsule 125 mg PO DAILY Mark Probiotic 14 billion cell capsule PO quetiapine 25 mg tablet 12.5 mg PO DAILY phenazopyridine [Pyridium] 200 mg tablet 200 mg PO TID PRN (Reason: pain) Qty: 10 0RF Referrals: Sushma Morris DO [Primary Care Provider, Medical]
[2024-12-19 15:10] LABS: Free T4, Direct Thyroxine 0.93 ng/dL (0.78-2.19)
--- NOTE | 2024-12-19 15:35 | CM.SWNOTE ---
ED BIRD RAISER Assessment Note: BIRD RAISER - Locksmith Assessment BIRD RAISER/Locksmith Assessment Time Spent with Patient Start date 12/19/24 Visit Start Time 11:45 End date 12/19/24 Visit End Time 12:25 Total time Care Management spent on 40 minutes patient visit-in minutes Mental Health Screening Include Onset, Duration, Intensity Presenting Problem Patient presented to the ED via EMS due to hallucinations and delusions which have been exacerbating anxiety. Per EMS, there has been multiple contacts at the patient's home in the last week (3x). Per spouse, patient's hallucinations started approximately 6 months ago and have increasingly been worse in the last two weeks which have been impeding on the pt's sleep and overall wellbeing. Patient has a hx of Parkinson's Disease. Precipitating Event(s) Patient and spouse recount pt having increased paranoia that a gang will be after her dog, Jannie. Per patient, this gang will boil her dog in hot oil and kill it. Patient explains having hallucinations of people outside of her front door, they do not stay anything but just stare at her. Patient spouse states patient has been wandering more often recently and is more impulsive, leaving the house, being found with razor blades, and patient is not sleeping. Patient spouse states patient has been having some adjustments to her medications to include adding Seroquel back in her Medication list in the last two weeks. APS report was placed by daughter, Ana, due to suspected unsafe conditions at home as pt's /primary caregiver experiencing burn out and difficulty in managing all care needs. APS Power Transformer Inspector, Paul Gannon ph# [phone]. Patient family has been attempting to get patient placed at an Assisted Living Facility which has caused patient some stress as she really does not want to go to an [facility]. Family had placement at a facility in [place] but patient has not been agreeable and that unit is no longer available. Patient Strengths Patient is supported by her , Gretta and daughter, Ana ph#[phone] who lives in [place]. Current Behavioral Health Provider(s) None reported. Include Facility, Provider, Ph. # Psych. Hx Mental Health and Chemical Previous hx of Parkinson Dependency Disease and anxiety. Family Hx of Behavioral Abuse None reported. Psychiatric Hospitalizations (date(s)/ None reported. location) Psychosocial information & Support Patient is a 79yo female, Systems resident of [place] with her , Gretta, and their dog, Jannie. School/Work Retired. Legal Concerns Legal Matters - Outstanding Issues None currently, APS investigation pending. Mental Status Orientation (Person/Place/Time) AOx3 Stated Mood anxious Affect (Congruent with Mood?) Anxious, congruent with mood Thought Content - Specify/Describe Delusions: a gang is looking Obsessions, Delusions, Hallucinations for her dog and are trying to boil it in hot oil and kill him. Hallucinations: People outside of front door, watching her but not saying anything. Denies auditory hallucinations, not responding to internal stimuli. Thought Processes (Uguqtps-Xfgvinjd-Roqe Goal directed, tangential Gwlselni-Tvlybexr-Fwhahjcazu- Mnlpjyvybcfqam-Utprljt-Rwtcpxnbcyol- Thought Blocking) Speech (Lebiml-Reqm-Yxmynxx-Rapid-Soft- Normal, soft Loud-Pressured) Motor (Aclygq-Luxeqluaa-Uvgw-Other) Excessive due to Parkinson's Disease - postural instability . Insight (Teix-Hofc-Smne/Limited) Poor/limited Judgement (Keni-Lgbf-Zvei/Limited) Poor/limited Impulse Control (Adequate-Impaired) Impaired Memory (Whfzyxcsq-Zxdagz-Syguij, Remote Impaired-Intact) Concentration (Intact-Impaired) Intact Attention (Intact-Impaired) Intact Behavior (Appropriate-Inappropriate) Inappropriate Additional Comment Patient is calm and cooperative during assessment but lacking insight on condition and treatment needed. Risk Assessment Suicidal Ideation (Plan) No: Patient denies SI, SI statements made last 2 weeks because of [facility] placement Homicidal Ideation (Plan) No Comment COLUMBIA-SUICIDE SEVERITY RATING SCALE 1) Have you wished you were or wished you could go to sleep and not wake up? NO 2) Have you actually had any thoughts of killing yourself? NO 3) Have you been thinking about how you might do this? NO 4) Have you had these thoughts and had some intention of acting on them? NO 5) Have you started to work out or worked out the details of how to kill yourself? Do you intend to carry out this plan? NO 6) Have you ever done anything , started to do anything, or prepared to do anything to end your life? NO If YES, ask: Was this within the past three months? NO Intervention Intervention Reviewed chart and discussed with ED Provider pt's medical status and discharge needs. ED BIRD RAISER meets with patient and spouse. Pt spouse explain patients increased hallucinations and anxiety which have made it difficult to redirect patient and maintain safety at home. Patient's anxiety has caused her to wander more often without supervision. Patient spouse states this has been increasing in activity in the last two weeks. Patient not agreeable with family's plans of Assisted Living placement but also not agreeable to other interventions. ED BIRD RAISER spoke with pt daughter, Ana Tolentino ph#[phone]. Patient daughter states she is concerned that her father is not able to continue safely caring for patient at home and has been attempting to get pt placed at an Assisted Living Facility. Patient daughter states she placed an APS report this week. ED BIRD RAISER spoke with APS freight claim investigator, Paul Gannon ph# [phone], and discussed patient case. He states he attempted to complete visit today but no one was home. APS freight claim investigator requesting clinicals to continue with investigation. ED BIRD RAISER and patient discuss goals of care. Patient states she does not think psychiatric placement is necessary at this time although she does agree that she is experiencing delusions/hallucinations that is affecting her sleep and daily wellness. Patient agreeable to continued medical workup by ED Provider before reassessment. At this time, it is the opinion of this BIRD RAISER that patient would benefit from inpatient psychiatric hospitalization for medication /crisis stabilization vs. Memory care placement. BIRD RAISER informs ED provider, Dr. Brunner, who indicates agreement. BIRD RAISER informs COLTON Smith. Plan RA Plan Once patient is medically clear, ED staff will attempt to find placement for patient - Assisted Living vs. Psychiatric Inpatient facility. Ana Vázquez VOICE INSTRUCTOR
[2024-12-19 16:42] LABS: Ur Creatinine Normal (Normal); Ur Specific Gravity Normal (Normal); Urine Amphetamines Negative (Negative); Urine Barbiturates Negative (Negative); Urine Benzodiazepines Negative (Negative); Urine Cocaine Negative (Negative); Urine MDMA Negative (Negative); Urine Methadone Negative (Negative); Urine Opiates Negative (Negative); Urine Oxycodone Negative (Negative); Urine Phencyclidine Negative (Negative); Urine THC Negative (Negative); Urine Tricyclic Antidepressant Negative (Negative); Urine pH Normal (Normal)
[2024-12-19 16:52] LABS: Bacteria Urine Moderate (10-30); RBC Urine None Seen (0-5/HPF); Squamous Epithelial Cell Urine 1-5 /HPF (0-5/HPF); Transitional Epi Cells Urine 0-1/HPF (0-5/HPF); Urine Volume 10mL (spun); WBC Urine 10-30/HPF (0-5/HPF)
[2024-12-19 16:53] LABS: Culture Indicated Urine Specimen Cultured; Ictotest Urine Negative (Negative)
--- NOTE | 2024-12-19 17:03 | CM.SWNOTE ---
DCP Continued: Reviewed EMR and team rounds for pt?s medical status. DCP spoke with pt daughter, Ana, who is assisting pt in coordinating half-way care placement. Stated there is a family preference for placement in [place] to include the following facilities: - [facility], ph# , fax# [phone]. - [facility], ph# . DCP initiated bed search for respite placement: - [facility]: Admissions (Nava) to review patient and possible bedside assessment to be scheduled in the next few days. Offering immediate respite care in [place] until LTC placement in [place]. - spring: No admissions available until Sunday, 12/21. ED CLINICAL APPLICATION CONSULTANT spoke with APS Tissue Specialist, Paul Gannon, and sent clinicals for review. APS recommends pt family to have POA paperwork on file to assist with placement. Per , there is no safe discharge at home at this time; agreeable to respite care placement until half-way memory care available in [place]. Plan: No safe discharge at this time, pt to board in ED while discharge planning continues with respite facilities. Medical work up also to continue for possible admission. CM Team will continue to follow for coordination of discharge plans. CHICA FaustinSW
--- NOTE | 2024-12-19 18:43 | CM.SWNOTE ---
ED AMERICAN INDIAN STUDIES PROFESSOR: Reviewed pt status, non compliance and not directable, with ED Providers Dr. Brunner and Dr. Braga. Both in agreement for DCR dispatch. DCR dispatched at 1843 via [facility] Crisis Line. Clincials faxed to DCR fax #. Pending DCR ETA for assessment. CHICA FaustinSW
[2024-12-19] MEDS: OLANZapine 10 MG VIAL 5 MG IM ×2 (18:49→20:00)
--- NOTE | 2024-12-19 20:12 | PC.NURSE ---
Pt is agitated and trying to leave. She was placed in seclusion per the provider's order. ASSESSMENT EXPERT and Charge were asked for a one on one sitter so that the patient did not need to be in seclusion. The patient is trying to get out of the room. She is calm but agitated in the room but is a flight risk and if the door is opened she will move. Charge nurse declined 1:1 sitter. Rn appointed to sit with the patient 1:1.
--- NOTE | 2024-12-19 20:47 | PC.NURSE ---
Late entry: Around 1949, pt became agitated and exited the room, yelling that she needed to leave, wouldn't stay here, and needed to go home. Pt ambulated around the ED and into back hallways searching for exit. Unable to be redirected. Dr Braga aware, orders received for IM zyprexa and ativan; ativan not available due to shortage so only zyprexa given. Pt continued to escalate, uncooperative with care, not following verbal instructions. Pt moved to room 13 and door closed at 2009. Dr Braga aware and orders for seculsion obtained. Pt with 1:1 RN for monitoring 2049 Pt remains agitated, ambulating around room and attempting to open door.
--- NOTE | 2024-12-19 21:07 | PC.NURSE ---
DCR was dispatched at 184 by Inspector Repairer Sandstone Ana. A triage person called back around 1929 and spoke with the nurse regarding this patient to see if it was appropriate to dispatch DCR. Never heard anything back from [facility] and i called back at 2101 to see if there was any updates or ETA for DCR. The gentleman on the phone told me that DCR was never dispatched but they did know about the patient. DCR was re-dispatched at 2101. MINA Loya called back at 2108 to let us know that he is on his way and will arrive around 2129. RN Jocelyn and Provider Dr. Braga notified about the situation.
[2024-12-19] MEDS: NITROFURANTOIN ER 100 MG CAPSULE PO (21:57)
[2024-12-19] MEDS: LORazepam 0.5 MG TABLET 2 MG PO (21:58)
--- NOTE | 2024-12-19 22:05 | PC.NURSE ---
pt and had a successful conversation on the phone. The asked the patient to be cooperative and the pt agreed. She is calm and agreed to remain calm so she can have a regular bed. She agreed to change into some more comfortable clothing (safety scrubs) She is changing. DCR (Patrice) here awaiting the patient's wardrobe change.
--- NOTE | 2024-12-19 22:13 | PC.NURSE ---
DCR interviewing now
--- NOTE | 2024-12-19 22:41 | PC.NURSE ---
pt decided to crawl in bed and rest. She has a snacks and drinks and is calm and agreeable to trying to sleep.
--- NOTE | 2024-12-19 23:01 | PC.NURSE ---
Patient fell asleep in her room. She has fluids at bedside.
--- NOTE | 2024-12-20 00:18 | PC.NURSE ---
Pt resting quielty with eyes closed, resps even and not labored. No distress noted at this time. Pt remains in ligature free room with frequent rounding by staff.
--- NOTE | 2024-12-20 00:33 | PC.NURSE ---
Pt ambulatory to restroom with tech standby without difficulty. Back to ED stretcher, warm blankets given. No other complaints or needs at this time.
--- NOTE | 2024-12-20 01:30 | PC.NURSE ---
Pt resting quietly with eyes closed, resps even and not labored. No distress noted at this time. Pt remains in ligature free exam room with closed circuit camera monitoring and frequent rounding by staff.
--- NOTE | 2024-12-20 02:28 | PC.NURSE ---
No change in patient condition or status. Pt resting quietly with eyes closed, resps even and not labored. No distress noted at this time. Pt remains in ligature free room with closed circuit camera monitoring and frequent staff rounding.
--- NOTE | 2024-12-20 03:15 | PC.NURSE ---
Pt ambulatory to restroom with 1 person assist without difficulty. PLaced self back in ED stretcher and wrapped with warm blankets. No other needs or concerns stated at this time.
--- NOTE | 2024-12-20 04:15 | PC.NURSE ---
Pt resting quietly with eyes closed, resps even and not labored. No distress noted at this time. Pt remains in ligature free exam room with closed circuit camera monitoring and frequent staff rounding.
--- NOTE | 2024-12-20 05:24 | PC.NURSE ---
Pt ambulatory to restroom with 1 person assist without issue. Back in ED stretcher with warm blankets. Remains in ligature free exam room with closed circuit camera monitoring and frequent staff rounding.
--- NOTE | 2024-12-20 06:21 | PC.NURSE ---
Pt ambulatory to restroom with 1 person assist.
--- NOTE | 2024-12-20 08:24 | PC.NURSE ---
[facility] at [phone] @ 6908 and spoke with Candie. Notified that there are no Female [facility] beds available until next week.
--- NOTE | 2024-12-20 08:52 | PC.NURSE ---
Addendum entered by Sonya Ricardo CNA 12/20/24 09:53: Dr.Rachle Kamara called back and spoke with ED provider @0916 Addendum entered by Sonya Ricardo CNA 12/20/24 08:57: manager call Dr.Rachel Kamara. Original Note: Dr.Arash Babin, Neurologist with [employer] was called at [phone] to consult with at 6580. Pg'd global position system technician with group.
[2024-12-20] MEDS: NITROFURANTOIN ER 100 MG CAPSULE PO (09:17)
[2024-12-20 09:18] VITALS: BP 156/83; PULSE 94; RESP 18; TEMP 36.8; O2SAT 97
[2024-12-20] MEDS: GABAPENTIN 400 MG CAPSULE PO (10:27)
[2024-12-20] MEDS: PRAVASTATIN 20 MG TABLET 10 MG PO (10:27)
--- NOTE | 2024-12-20 11:06 | PC.NURSE ---
This SLOT MACHINE KEY PERSON observed pt leave her room looking down the hallway. When asked pt stated she was looking for her . This SLOT MACHINE KEY PERSON redirected pt to her room and dimmed the lights to lower stimulation and provided warm blankets. Pt said she wants to rest.
--- NOTE | 2024-12-20 11:16 | CM.SWNOTE ---
ED ACCOUNT PLANNER DCP Note: Reviewed EMR and team rounds for pt?s medical status. Per MD, XXX Per RN, DCR assessed patient and ultimately had to walk-away due to no geripsych bed availability. ED ACCOUNT PLANNER continued geripsych bed search: ED ACCOUNT PLANNER calls [facility], spoke with Esperanza, it is reported there are no beds available. ED ACCOUNT PLANNER calls [facility], spoke with Tin, it is reported there is 1 bed available. ACCOUNT PLANNER completed assessment with COLTON Castle, ED RN to continue medical report/assessment. ED ACCOUNT PLANNER sent clinicals for review.Noted that [facility] will require DCR detainment. ED ACCOUNT PLANNER updated pt family outside of room of plan. ED ACCOUNT PLANNER calls [facility] Crisis Line to request re-dispatch of DCR with pending facility acceptance. Plan: Pending placement for Geripsych inpatient treatment, ED Staff following care plan. GLADYS Faustin
[2024-12-20] MEDS: CARBIDOPA-LEVODOPA 25/100 TABLET 0.5 EACH PO ×3 (11:32→17:43)
[2024-12-20] MEDS: CARBIDOPA-LEVODOPA ER 50/200 TABLET 1 EACH PO ×3 (11:32→17:43)
--- NOTE | 2024-12-20 12:02 | PC.NURSE ---
Report to Tin palacios Olaton for screening of pt for geropsych
[2024-12-20 12:40] LABS: COVID19 -Nasal RAPID Negative (Negative)
--- NOTE | 2024-12-20 14:02 | PC.NURSE ---
pt wandered from room into hallway looking for her . This REGULATORY AFFAIRS INTERNSHIP with the assistance of ED RNs and FINANCIAL SERVICES INTERN redirected pt to her room and provided warm blankets and a cell phone to speak with pt's .
--- NOTE | 2024-12-20 14:03 | PC.NURSE ---
patient was in hallway having a difficult time being redirected back to room with multiple nurses and techs, I was able to redirect the patient back to her room after multiple attemtps with clean blankets and the patient cell phone to call her .
[2024-12-20] MEDS: LORazepam 0.5 MG TABLET 1 MG PO ×2 (14:22→18:48)
[2024-12-20] MEDS: NUPLAZID 34 MG 34 EACH PO (14:23)
[2024-12-20 14:45] VITALS: BP 105/66; PULSE 80; RESP 16; O2SAT 95
--- NOTE | 2024-12-20 15:05 | PC.NURSE ---
Pt resting on stretcher, RA, breathing even/equal/unlabored at this time. Sitter in line of sight with pt
--- NOTE | 2024-12-20 17:52 | CM.SWNOTE ---
ED SCALPER OPERATOR Transfer Note: SCALPER OPERATOR received call from Tin SEGURA, Intake reports patient is accepted for inpatient treatment, they are requesting patient to arrive at their facility at 2200 or after. Provider: JETT Arboleda RN-RN Report#:[phone] (ED RN Kennedi already completed) SCALPER OPERATOR called [facility] and coordinated BLS transport for patient from ED at 1815, to arrive at facility at approximately 2215. ED SCALPER OPERATOR met with pt and MINA Leon in patient's room. DCR served pt with detainment paperwork at 1715. ED SCALPER OPERATOR provided pt with emotional support and validation. Provided printed address of [facility] for his reference as he has plans to meet pt at the facility tomorrow, 12/21. ED SCALPER OPERATOR also provided pt with contact information for [facility] Manager Of Security, Columba Chatterjee RN, to assist with memory care placement coordination with family as pt receives inpatient treatment. Plan: Pt to transfer to [facility] at 1815 via [facility]. GLADYS Faustin
[2024-12-20 18:20] VITALS: BP 97/55; PULSE 73; RESP 13; O2SAT 98
[2024-12-20] MEDS: QUETIAPINE 100 MG TABLET 25 MG PO (18:47)
--- NOTE | 2024-12-20 18:55 | PC.NURSE ---
Report to KANDICE May for pt transporting to [facility]&Ox3, RA, breathing even/equal/unlabored at this time. No IV at time of transport. Pt medicated for transport with orders from provider
--- NOTE | 2024-12-24 10:50 | PC.NURSE ---
late entry for 12/19/24: PO Ativan, 2 mg, NOT GIVEN DUE TO PATIENT REFUSAL. Wasted by two nurses in pixus.
== END 2024-12-20 18:57 ==
PROVIDERS: Emergency Provider Student in an Organized Health Care Education/Training Program; PCP Family Medicine
DX: R44.3 Hallucinations, unspecified (principal); G20.A1 Parkinson's disease without dyskinesia, without mention of fluctuations
CPT/HCPCS: 36415; 80053; 80305; 80320; 80329; 81003; 81015; 84439; 84443; 85025; 87086; 87635; 96372; 99285; G0480; J2359